=== PATIENT | female | born 1950 | race Caucasian/White ===

== ENCOUNTER 2018-05-04 20:49 | Inpatient (IN) | payer MEDICARE, OTHER, SELFPAY ==
[2018-05-04 20:50] VITALS: BP 111/61; PULSE 132; RESP 14; TEMP 38.1; O2SAT 98; BMI 21.0
[2018-05-04 21:18] VITALS: PULSE 121; RESP 19; O2SAT 98
[2018-05-04 22:18] LABS: Absolute Lymphocyte Count 0.44 X10^3/ul (0.83-4.51); Absolute Neutrophil Count 1.8 X10^3/uL (2.0-7.7); Basophil# 0.01 X10^3/uL; Basophil% 0.4 % (0-1); Eosinophil# 0.02 X10^3/uL; Eosinophils% 0.7 % (0-5); Hematocrit 24.8 % (37-47); Hemoglobin 8.5 g/dl (12.0-15.0); Lymphocyte # 0.44 X10^3/ul (4.0); Lymphocyte % 16.1 % (19-41); Mean Corp Hgb Conc 34.3 g/gl (32-36); Mean Corpuscular Hgb 31.5 pg (27.0-32.0); Mean Corpuscular Volume 91.9 fL (81-99); Mean Platelet Vol. 10.7 fl (6.2-12.0); Monocyte# 0.47 X10^3/uL; Monocyte% 17.2 % (0-10); Neutrophil # 1.77 X10^3/uL (2.7-7.7); Neutrophil % 64.9 % (47-70); Platelet Count 168 K/mm3 (150-450); White Blood Count 2.7 K/mm3 (4.4-11.0)
[2018-05-04 22:20] LABS: Differential Indicated SCAN CRITERIA MET; POSITIVE COUNT NO; POSITIVE DIFFERENTIAL YES; POSITIVE MORPHOLOGY YES
[2018-05-04 22:31] LABS: AST(SGOT) 78 U/L (15-37); Alanine Aminotransfer ALT/SGPT 46 U/L (13-56); Alkaline Phosphatase 424 U/L (45-117); Anion Gap 10 (5-15); BUN 26 mg/dL (7-18); BUN/Creat Ratio 22.2 RATIO (10-20); Bilirubin, Direct 0.89 mg/dL (0.00-0.30); Calcium,Total 7.7 mg/dL (8.5-10.1); Chloride 109 mmol/L (98-107); Creatinine, Serum 1.17 mg/dL (0.55-1.02); EST Glomerular Filtration Rate 49 mL/min (>60); Est Glom Filt Rate - Afr Amer 59 mL/min (>60); Globulin 3.5 g/dL (2.2-4.2); Glucose 100 mg/dL (74-106); Lipase 44 U/L (73-393); Potassium 3.3 mmol/L (3.5-5.1); Protein, Total 5.5 g/dL (6.4-8.2); Sodium Level 139 mmol/L (136-145)
[2018-05-04 22:37] VITALS: BP 109/97; PULSE 112; RESP 16; O2SAT 99
[2018-05-04 22:44] LABS: Differential Comment SCANNED
[2018-05-04] MEDS: 0.9% Normal Saline 1,000 ML 150 ML IV (22:44)
[2018-05-04] MEDS: Acetaminophen 325 MG Tablet 650 MG PO (23:09)
[2018-05-04] MEDS: Ondansetron 4 MG/2 ML Vial IV (23:09)
[2018-05-04 23:10] VITALS: BP 112/6; PULSE 109; RESP 18; O2SAT 100
[2018-05-05] VITALS (11 sets, daily range): BP systolic 98–129; BP diastolic 58–80; PULSE 88–101; RESP 16–20; TEMP 36.3–36.7; O2SAT 99–100; BMI 21.3; BMI 21.4
--- NOTE | 2018-05-05 | IMM_PTH ---
PATIENT: RON RIBERA LOC: MS3 U#:[id number] AGE/SX: 68/F ROOM: MS311 RE05/05/[address]: Dr. Chelsy Stanley MD : 1950 BED: 1 DIS: 05/07/2018 SPEC #: [id number] RECD: 05/08/18 14:47 STATUS: ROBERTO REQ #: [id number] RENZO: 05/05/18 00:[address]: Chelsy Stanley DEPT: IMMUNOHISTOCHEMISTRY RECD BY: Eleni Agee ENTERED: 05/08/18 14:49 SP TYPE: IMMUNO OTHR DR: MD Dr. Brian Mcclain MD No Primary Care Phys Tissues: PARACENTESIS FLUID Procedures: Thyroglobulin (add) Sumanth Ret (add) CK20 (add) CK7 (add) MACRO (add) P53 (add) Vimentin (add) Pankeratin (add) TTF1 (initial) PHYSICIAN & INSTITUTION [place] [id number] SPECIMEN INFORMATION: Tissue Source: Paracentesis fluid Clinical Info: Neutropenic fever, UTI Specimen Number: [id number] #1 CPT code: 41147, 91764 x8 METHODOLOGY: Deparaffinized sections of prefer/formalin-fixed tissue or PAP/DQ stained slides are incubated with monoclonal/polyclonal antibodies/oligonucleotide probes. Localization is made via biotin free immunoperoxidase method. Appropriate controls are performed and reacted as expected. Results on target cell population are indicated in the following table: RESULTS: ANTIBODY / CLONE RESULT Block 1 TTF-1 (8G7G3/1) negative Thyro (2H11+6E1) negative CALRET (polyclonal) negative (positive in mesothelial cells) Macro (HAM-56) negative Vimentin (V9) negative (positive in macrophages) CK7 (OV-TL12/30) negative CK20 (KS20.8) negative P53 (DO-7) negative AE1-3 (AE1/AE3/PCK26) negative These tests were developed and their performance characteristics determined by [facility]. They may not have been cleared or approved by the U.S. Food and Drug Administration. The FDA has determined that such clearance or approval is not necessary. INTERPRETATION: Paracentesis fluid: Negative for malignant cells. JAY:kayden 05/11/18
--- NOTE | 2018-05-05 | FLU_PTH ---
PATIENT: RON RIBERA LOC: MS3 U#:[id number] AGE/SX: 68/F ROOM: DE311 RE05/05/[address]: Dr. Chelsy Stanley MD : 1950 BED: 1 DIS: 05/07/2018 SPEC #: [id number] RECD: 05/05/18 15:44 STATUS: ROBERTO FERRELL #: [id number] RENZO: 05/05/18 00:[address]: Chelsy Stanley DEPT: CYTOLOGY RECD BY: Gabo Bello ENTERED: 05/06/18 09:48 SP TYPE: Fluid OTHR DR: MD Dr. Brian Mcclain MD No Primary Care Phys Tissues: PARACENTESIS FLUID Procedures: Pap Stain (control) Special Stain Group II Surgery Specimen Level IV Cell Block Cytospin Fluid HEADER OPERATION: Ultrasound guided, right paracentesis PRE-OP DIAGNOSIS: Neutropenic fever, UTI TISSUE SUBMITTED: Paracentesis fluid for cytology DIAGNOSIS CYTOLOGY Paracentesis fluid for cytology (cytospin and cell block): Negative for malignant cells. JAY:kayden 05/11/18 COMMENT Immunohistochemistry ([id number]) supports the above diagnosis. Case has been reviewed in consultation with Dr. Carter who concurs with the above diagnosis. IDC:AM CYTOLOGY STUDY Slides are reviewed. The specimen consists of macrophages, mesothelial cells and inflammatory cells. A few atypical cels are noted, favor reactive mesothelial cells. CYTOLOGY GROSS Received is 95 ml of cloudy gold fluid labeled with the patient's name and and designated per the requisition as Paracentesis. Submitted for cytology preparation including cell block. /KLARISSA:kandace 05/06/18 TC:5 CPT: 99477, 42220
[2018-05-05 00:01] LABS: Mucous, Urine 0 SEEN /hpf (<or=2+); Red Blood Cells-Urine 0 SEEN /hpf (0-5); Squamous Epithelial Cells - UA 0 SEEN /hpf (5-10)
[2018-05-05 00:06] LABS: Color, Urine Yellow (Yellow); Glucose, Dipstick Normal (Normal); Ketone-Dipstick 5 mg/dl (Negative); Leukocyte Esterase-Dipstick 500 /ul (Negative); Nitrite-Dipstick Negative (Negative); Occult Blood-Urine 150 /ul (Negative); Protein-Dipstick 100 mg/dl (Negative); Urine Clarity Cloudy (Clear); Urine Urobilinogen 1 mg/dl (Normal)
[2018-05-05 00:07] LABS: Urine Bilirubin Dipstick 1 mg/dL (Negative)
[2018-05-05 00:15] LABS: White Blood Cells >100 SEEN /hpf (0-5)
[2018-05-05 00:16] LABS: Bacteria 3+ /hpf (None Seen)
[2018-05-05] MEDS: Ceftriaxone 1 GM/50 ML BAG IV (00:56)
--- NOTE | 2018-05-05 01:21 | ED.VISSUMM ---
- ER Visit Summary Date of Service: 05/05/18 Chief Complaint: Fever History of Present Illness: The patient is a 68 F who is currently on chemotherapy for breast cancer with metastases to the liver, bone, and lung. Most recent chemotherapy was April 29. Patient developed abdominal pain the following day, 5 days ago. She complains of pain to the left mid abdomen. She has had fever for the past 4 days. She has not notified her oncologist that she has been running a fever. She does report cough with very mild phlegm production. No vomiting or diarrhea. She does admit to poor appetite. Physical Examination: Vital signs in triage include a blood pressure 111/61, temperature 100.5 TA, heart rate 132, respiratory rate 14, pulse ox 98% on room air. The time of my exam her oral temperature is 98.7. Patient sitting upright in bed in no acute distress. She is a cachectic appearing. Head neck examination grossly unremarkable. Heart is tachycardic and regular. Lung sounds are clear. Abdomen is soft with mild left-sided abdominal tenderness. There is no guarding or rebound. Hypoactive bowel sounds are noted. Abdomen is slightly distended throughout. Lower extremity examination reveals 3+ edema to the lower extremities. Test Results: Portable chest x-ray shows no acute process. CBC was a white count of 2.7 and hemoglobin of 8.5. Her ANC is 1.8. Chemistry studies reveal potassium 3.3. BUN is 26 and creatinine is 1.17. LFTs are significant for total bili of 1.2, direct bili 0.89, alk phos of 424. AST is 78. Lipase is normal. Urinalysis obtained from a straight cath does reveal greater than 100 white cells and 3+ bacteria. Blood and urine cultures were obtained. CT the abdomen pelvis shows multiple metastatic lesions in the liver. There is a moderate amount of free air in the abdomen and pelvis. There are multiple metastatic lesions in the lower thoracic spine, lumbar spine, sacrum, and pelvis. There are pathologic fractures noted to the upper endplate of T10, L1, and L3. Emergency Department Course and Treatment: Patient received Tylenol and Zofran on arrival. She has been getting IV fluids. Rocephin has been ordered. On repeat evaluation blood pressure is 127/80, heart rate 91, respiratory rate 16, pulse ox 100%. Treatment Plan: [] Disposition: Admit Impression: 1. Neutropenic fever 2. UTI This note was generated with [employer] dictation software. It may contain incorrect words, spelling, and punctuation that were not noted in review of the chart prior to signing ED Disposition - Plan for ED Patient: Chief Complaint: General Illness Referrals: Care Physician,No Primary [Primary Care Provider] -
--- NOTE | 2018-05-05 01:36 | PCM.HP.STD ---
Problem List (1) Breast cancer metastasized to bone Status: Chronic (2) Acute cystitis Status: Acute (3) Fever Status: Acute (4) GERD (gastroesophageal reflux disease) Status: Chronic (5) Hypertension Status: Chronic Qualifiers: (6) History of breast cancer Status: Chronic (7) Thyroid nodule Status: Chronic (8) Neutropenia Status: Acute Qualifiers: Neutropenia type: secondary to cancer chemotherapy Qualified Code(s): D70.1 - Agranulocytosis secondary to cancer chemotherapy; T45.1X5A - Adverse effect of antineoplastic and immunosuppressive drugs, initial encounter History of Present Illness Date of Admission: 05/05/18 Chief Complaint: febrile illness after chemotherapy The patient is a 68 year old female patient with a significant past medical history of breast cancer with metastasis to liver, bone and lung presents to the ER with fever. Her last chemotherapy was on April [address] Barakat. She complains of abdominal discomfort that began 4-5 days ago. She has had a fever as well but has not reported this to her oncologist. She has a poor appetite and has nausea but no vomiting. Labs reveal a leukopenia and and she has a fever. Urine is positive for bacteria as well. She will be admitted for neutropenic fever and UTI. Past Medical History Past Medical History (Chronic Problems): Chronic Problems Breast cancer metastasized to bone (Chronic) GERD (gastroesophageal reflux disease) (Chronic) Hypertension (Chronic) History of breast cancer (Chronic) Thyroid nodule (Chronic) Allergies iodine Allergy (Verified 05/04/18 20:52) Swelling PT AVOIDS IODINE DUE TO SHELLFISH ALLERGY poison cher extract [Poison Cher Extract] Allergy (Verified 05/04/18 20:52) Hives shellfish derived Allergy (Verified 05/04/18 20:52) Hives zolpidem [From Ambien] Adverse Reaction (Verified 05/04/18 20:52) Other Home Medications: Ambulatory Orders Medication Instructions Recorded Levothyroxine [Synthroid] 112.5 mcg PO DAILY 07/04/14 Triamterene 75MG/Hctz 50MG 1 tablet PO DAILY 06/30/17 [Maxzide] Potassium Chloride 10 meq PO BID 07/19/17 DiphenhydrAMINE [Benadryl] 25 mg PO Q6H PRN PRN capsule 07/21/17 Lisinopril DAILY 05/04/18 Prilosec DAILY 05/04/18 Surgical History: mastectomy Psychiatric History: No pertinent psych hx 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 Denies: Weight Change HEENT: Denies: Head Aches, Sinus Congestion, Sinus Drainage Cardiovascular: Denies: Chest Pain, Palpitations Respiratory: Denies: Cough, Shortness of breath at rest, Sputum production Gastrointestinal: Reports: Abdominal Pain, Nausea. Denies: Vomiting Genitourinary: Denies: Dysuria Musculoskeletal: Denies: Joint Pain, Joint Tenderness Skin: Denies: Rash, Wounds Neurological: Denies: Numbness, Tingling, Focal weakness Psychiatric: Denies: Anxiety, Depression, Homicidal Ideations, Suicidal Ideations Hematologic/ Lymphatic: Denies: Easy Bruising, Easy Bleeding VTE Information - Inpt Only VTE Present on Admission: No VTE Mechan Device Prophylaxis: SCD's VTE Pharm Prophylaxis ordered?: No Patient Problems: Active and Suspected Problems Neutropenia (Acute) - Physical Exam General: Alert, Oriented x3, Cooperative HEENT: Atraumatic, Normocephalic Neck: Supple Lungs: Clear to auscultation, Normal air movement, No rhonchi, No wheeze, No rales Cardiovascular: Regular rate, Regular Rhythm, Normal S1, Normal S2, No murmurs Abdomen: Soft, Non Tender, Hypoactive Bowel Sounds, Distended, Tender - generalized Extremities: No edema, Capillary Refill Less than 3 Seconds Skin: No rashes, No breakdown, - - left subclavian port present Musculoskeletal: No Tenderness to Palpation of Joints or Extremities Neurological: Neuro grossly intact Psych/Mental Status: Normal Affect, Appropriate Vital Signs Temp Pulse Resp BP Pulse Ox 100.5 F H 92 16 127/80 H 100 05/04/18 20:50 05/05/18 00:48 05/05/18 00:48 05/05/18 00:48 05/05/18 00:48 Oxygen Delivery Method Room Air Weight: 115 lb Body Mass Index (BMI) 21.0 Laboratory Tests Past 24 Hrs 05/04/18 05/04/18 05/04/18 21:55 21:55 23:58 WBC 2.7 L RBC 2.70 L Hgb 8.5 L Hct 24.8 L MCV 91.9 MCH 31.5 MCHC 34.3 RDW 17.0 H RDW Differential 55.0 H Plt Count 168 MPV 10.7 Immature Gran % (Auto) 0.700 Neut % (Auto) 64.9 Lymph % (Auto) 16.1 L [place] % (Auto) 17.2 H Eos % (Auto) 0.7 Baso % (Auto) 0.4 Absolute Neuts (auto) 1.8 L Absolute Lymphs (auto) 0.44 L Total Counted Not Reportable Differential Comment SCANNED Sodium 139 Potassium 3.3 L Chloride 109 H Carbon Dioxide 20.0 L Anion Gap 10 BUN 26 H Creatinine 1.17 H Estim Creat Clear Calc 36.90 Est GFR (MDRD) Af Amer 59 L Est GFR (MDRD) Non-Af 49 L BUN/Creatinine Ratio 22.2 H Glucose 100 Calcium 7.7 L Total Bilirubin 1.20 H Direct Bilirubin 0.89 H AST 78 H ALT 46 Alkaline Phosphatase 424 H Total Protein 5.5 L Albumin 2.0 L Globulin 3.5 Lipase 44 L Urine Color Yellow Urine Clarity Cloudy Urine pH 5.0 Ur Specific [place] 1.010 Urine Protein 100 H Urine Glucose (UA) Normal Urine Ketones 5 H Urine Occult Blood 150 H Urine Nitrite Negative Urine Bilirubin 1 H Urine Urobilinogen 1 H Ur Leukocyte Esterase 500 H Urine RBC 0 SEEN Urine WBC >100 SEEN Ur Squamous Epith Cells 0 SEEN Urine Bacteria 3+ Urine Mucus 0 SEEN Assessment/Plan All Active Problems Neutropenia (Acute) Acute cystitis (Acute) Fever (Acute) Drug rash (Acute) Assessment 1. neutropenic fever 2. UTI Plan - admit to general medical floor - neutropenic precautions - continue IV Rocephin and add ciprofloxacin - cbc,bmp in am - consult Dr. Barakat - scds for DVT prophylaxis - continue routine home medications - IV d51/2NS with 20meq KCl at 100cc/hour Code Visit Inpatient E&M: 38812 Init Hosp L3
[2018-05-05] MEDS: Ciprofloxacin 400 MG/200 ML BAG 200 MG IV ×3 (03:01→22:19)
[2018-05-05] MEDS: Levothyroxine 112 MCG Tablet PO (05:34)
[2018-05-05 06:14] LABS: Hematocrit 26.4 % (37-47); Mean Corp Hgb Conc 34.1 g/gl (32-36); Mean Corpuscular Hgb 31.7 pg (27.0-32.0); Mean Platelet Vol. 10.2 fl (6.2-12.0); Platelet Count 145 K/mm3 (150-450); RBC Distribution Width CV 17.5 % (11.6-14.6); RBC Distribution Width SD 57.3 fl (35.1-43.9); Red Blood Count 2.84 M/mm3 (4.2-5.4); White Blood Count 2.4 K/mm3 (4.4-11.0)
[2018-05-05 06:19] LABS: Scan Indicated on CBC? Y/N NO
[2018-05-05 06:24] LABS: Anion Gap 13 (5-15); BUN 26 mg/dL (7-18); BUN/Creat Ratio 19.8 RATIO (10-20); Calcium,Total 7.2 mg/dL (8.5-10.1); Chloride 107 mmol/L (98-107); Creatinine, Serum 1.31 mg/dL (0.55-1.02); EST Glomerular Filtration Rate 43 mL/min (>60); Est Glom Filt Rate - Afr Amer 52 mL/min (>60); Estimated Creatinine Clearance 32.96 ml/min; Glucose 123 mg/dL (74-106); Potassium 3.2 mmol/L (3.5-5.1); Sodium Level 140 mmol/L (136-145)
--- NOTE | 2018-05-05 08:06 | PCM.CONS.B ---
Problem List (1) Neutropenia Status: Acute Qualifiers: Neutropenia type: secondary to cancer chemotherapy Qualified Code(s): D70.1 - Agranulocytosis secondary to cancer chemotherapy; T45.1X5A - Adverse effect of antineoplastic and immunosuppressive drugs, initial encounter (2) Acute cystitis Status: Acute Qualifiers: Hematuria presence: without hematuria Qualified Code(s): N30.00 - Acute cystitis without hematuria (3) History of breast cancer Status: Chronic (4) Ascites, malignant Status: Suspected - Consult Date of Consult: 05/05/[address] Perlita lopezing a patient with metastatic breast cancer on chemotherapy presented with fever, abdomenal pain and neutropenia. My final recommendation will be communicated to Dr. Rubio and by E.M.R. - Reason for Consult History of Present Illness Date of Admission: 05/05/18 Chief Complaint: febrile illness after chemotherapy The patient is a 68 year old female patient with a significant past medical history of breast cancer with metastasis to liver, bone and lung presents to the ER with fever. Her last chemotherapy- Capmtosar was on April 29. She complains of abdominal discomfort and distension that began 4-5 days ago. She has had a fever last night and mild dysuria She has a poor appetite and has nausea for several days but no vomiting. Labs reveal a leukopenia and abnormal LFTs. Urine is positive for bacteria as well. She was admitted for neutropenic fever and UTI. CT scan of abdomen showed worsten liver metastasis with new ascites. Oncology history: Stage IIb pT2, pN1a right breast IDC ca, s/p MRM and reconstruction, XRT and adj chemo AC x4, Taxol x 4 in 1999. Tamoxifen x 5 years, Femara [id number] Recurrence on 07/19/2012; Bx of sternum ER+/NC+/ Her2- with liver, lungs & bone mets Taxol2012- 2013 Aromasin 2014 Thyrodectomy for Thyroid CA 07/08/2014 Faslodex 2015 Erulin 2015- 02/2017 Letrozol & Palbocicib 03/2017- 09/2017 Camptosar 10/2017- now Past Medical History Past Medical History (Chronic Problems): Chronic Problems Breast cancer metastasized to bone (Chronic) GERD (gastroesophageal reflux disease) (Chronic) Hypertension (Chronic) History of breast cancer (Chronic) Thyroid cancer (Chronic) Allergies iodine Allergy (Verified 05/04/18 20:52) Swelling PT AVOIDS IODINE DUE TO SHELLFISH ALLERGY poison cher extract [Poison Cher Extract] Allergy (Verified 05/04/18 20:52) Hives shellfish derived Allergy (Verified 05/04/18 20:52) Hives zolpidem [From Ambien] Adverse Reaction (Verified 05/04/18 20:52) Other Home Medications: Ambulatory Orders Medication Instructions Recorded Levothyroxine [Synthroid] 112.5 mcg PO DAILY 07/04/14 Triamterene 75MG/Hctz 50MG 1 tablet PO DAILY 06/30/17 [Maxzide] Potassium Chloride 10 meq PO BID 07/19/17 DiphenhydrAMINE [Benadryl] 25 mg PO Q6H PRN PRN capsule 07/21/17 Lisinopril DAILY 05/04/18 Prilosec DAILY 05/04/18 Surgical History: mastectomy Psychiatric History: No pertinent psych hx 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 Denies: Weight Change HEENT: Denies: Head Aches, Sinus Congestion, Sinus Drainage Cardiovascular: Denies: Chest Pain, Palpitations Respiratory: Denies: Cough, Shortness of breath at rest, Sputum production Gastrointestinal: Reports: Abdominal Pain, Nausea. Denies: Vomiting Genitourinary: Denies: Dysuria Musculoskeletal: Denies: Joint Pain, Joint Tenderness Skin: Denies: Rash, Wounds Neurological: Denies: Numbness, Tingling, Focal weakness Psychiatric: Denies: Anxiety, Depression, Homicidal Ideations, Suicidal Ideations Hematologic/ Lymphatic: Denies: Easy Bruising, Easy Bleeding - Physical Exam General: Alert, Oriented x3, Cooperative HEENT: Atraumatic, Normocephalic anicteric Neck: Supple Lungs: Clear to auscultation, Normal air movement, No rhonchi, No wheeze, No rales Cardiovascular: Regular rate, Regular Rhythm, Normal S1, Normal S2, No murmurs Abdomen: Soft, Non Tender, Hypoactive Bowel Sounds, Distended, Tender - generalized + ascites Extremities: No edema, Capillary Refill Less than 3 Seconds Skin: No rashes, No breakdown, - - left subclavian port present Musculoskeletal: No Tenderness to Palpation of Joints or Extremities Neurological: Neuro grossly intact Psych/Mental Status: Normal Affect, Appropriate Vital Signs Temp Pulse Resp BP Pulse Ox 100.5 F H 92 16 127/80 H 100 05/04/18 20:50 05/05/18 00:48 05/05/18 00:48 05/05/18 00:48 05/05/18 00:48 Oxygen Delivery Method Room Air Weight: 115 lb Body Mass Index (BMI) 21.0 Laboratory Results - last 24 hr 05/04/18 05/04/18 05/04/18 21:55 21:55 23:58 WBC 2.7 L RBC 2.70 L Hgb 8.5 L Hct 24.8 L MCV 91.9 MCH 31.5 MCHC 34.3 RDW 17.0 H RDW Differential 55.0 H Plt Count 168 MPV 10.7 Immature Gran % (Auto) 0.700 Neut % (Auto) 64.9 Lymph % (Auto) 16.1 L [place] % (Auto) 17.2 H Eos % (Auto) 0.7 Baso % (Auto) 0.4 Absolute Neuts (auto) 1.8 L Absolute Lymphs (auto) 0.44 L Total Counted Not Reportable Differential Comment SCANNED Sodium 139 Potassium 3.3 L Chloride 109 H Carbon Dioxide 20.0 L Anion Gap 10 BUN 26 H Creatinine 1.17 H Estim Creat Clear Calc 36.90 Est GFR (MDRD) Af Amer 59 L Est GFR (MDRD) Non-Af 49 L BUN/Creatinine Ratio 22.2 H Glucose 100 Calcium 7.7 L Total Bilirubin 1.20 H Direct Bilirubin 0.89 H AST 78 H ALT 46 Alkaline Phosphatase 424 H Total Protein 5.5 L Albumin 2.0 L Globulin 3.5 Lipase 44 L Urine Color Yellow Urine Clarity Cloudy Urine pH 5.0 Ur Specific [place] 1.010 Urine Protein 100 H Urine Glucose (UA) Normal Urine Ketones 5 H Urine Occult Blood 150 H Urine Nitrite Negative Urine Bilirubin 1 H Urine Urobilinogen 1 H Ur Leukocyte Esterase 500 H Urine RBC 0 SEEN Urine WBC >100 SEEN Ur Squamous Epith Cells 0 SEEN Urine Bacteria 3+ Urine Mucus 0 SEEN 05/05/18 05/05/18 05:30 05:30 WBC 2.4 L RBC 2.84 L Hgb 9.0 L Hct 26.4 L MCV 93.0 MCH 31.7 MCHC 34.1 RDW 17.5 H RDW Differential 57.3 H Plt Count 145 L MPV 10.2 Immature Gran % (Auto) Neut % (Auto) Lymph % (Auto) [place] % (Auto) Eos % (Auto) Baso % (Auto) Absolute Neuts (auto) Absolute Lymphs (auto) Total Counted Differential Comment Sodium 140 Potassium 3.2 L Chloride 107 Carbon Dioxide 20.0 L Anion Gap 13 BUN 26 H Creatinine 1.31 H Estim Creat Clear Calc 32.96 Est GFR (MDRD) Af Amer 52 L Est GFR (MDRD) Non-Af 43 L BUN/Creatinine Ratio 19.8 Glucose 123 H Calcium 7.2 L Total Bilirubin Direct Bilirubin AST ALT Alkaline Phosphatase Total Protein Albumin Globulin Lipase Urine Color Urine Clarity Urine pH Ur Specific [place] Urine Protein Urine Glucose (UA) Urine Ketones Urine Occult Blood Urine Nitrite Urine Bilirubin Urine Urobilinogen Ur Leukocyte Esterase Urine RBC Urine WBC Ur Squamous Epith Cells Urine Bacteria Urine Mucus CXR NAD Assessment/Plan All Active Problems Neutropenia (Acute) Acute cystitis (Acute) Fever (Acute) Ascites 2/2 liver disease - progression of metastatic breast cancer (Acute) Metastatic Breast Cancer ER+/Her2 non-overexpressed on Palliaitve chemotherapy. PLAN: -Continue antibiotics and awaiting urine culture results -Check Protime & u/s guide paracentesis for culture & cytology -Hold chemotherapy treatment and discuss other treatment options next week or Hospice/palliative care. -Prognosis not good since patient had multiple chemotherapy and endocrine therapies in the past. cc: Dr. Brian Bhat, Dr. Betzaida Barakat
[2018-05-05 09:09] LABS: International Normalized Ratio 1.2; Prothrombin Time (Protime)PT. 15.6 SECONDS (11.7-14.9)
[2018-05-05 09:10] LABS: Partial Thromboplast Time 32.9 Seconds (24.1-36.2)
[2018-05-05] MEDS: Pantoprazole Sodium 20 MG Tablet PO (09:24)
--- NOTE | 2018-05-05 10:05 | PCM.PN.BLA ---
Progress Note This patient admitted for fever, found to have acute cystitis in context of history of metastatic breast cancer and her blood culture revealed gram-negative rods. Patient seen and examined today. She mentioned that she is feeling better. Still complaining of dysuria. Denies any more abdominal pain. Her vital signs are stable, has been afebrile overnight. Her CBC revealed leukopenia and anemia but her absolute neutrophil count is 1800. No evidence of neutropenia. Her potassium is 3.2, creatinine 1.31 which is going up. Her LFTs are elevated likely because of metastasis. CT scan abdomen and pelvis without contrast revealed metastatic liver lesions, moderate ascites, multiple metastatic lesions in the lower thoracic spine, lumbar spine, sacrum and pelvic bones as well as pathological fractures of the T10, L1, L3. Assessment and plan: #1 acute cystitis: On IV ciprofloxacin. #2 gram-negative bacteremia: Probable source is UTI, on IV ciprofloxacin as above. #3 new abdominal ascites: Likely because of liver metastasis. Dr. Barakat recommended paracentesis, ascitic fluid cytology and culture. Ultrasound guided paracentesis ordered as well as bloody fluid analysis. This note was generated with [employer] software. It may contain incorrect words, spelling, and punctuation that were not noted in checking the note before signing.
--- NOTE | 2018-05-05 10:11 | PN_ITS ---
Progress Note This patient admitted for fever, found to have acute cystitis in context of history of metastatic breast cancer and her blood culture revealed gram- negative rods. Patient seen and examined today. She mentioned that she is feeling better. Still complaining of dysuria. Denies any more abdominal pain. Her vital signs are stable, has been afebrile overnight. Her CBC revealed leukopenia and anemia but her absolute neutrophil count is 1800. No evidence of neutropenia. Her potassium is 3.2, creatinine 1.31 which is going up. Her LFTs are elevated likely because of metastasis. CT scan abdomen and pelvis without contrast revealed metastatic liver lesions, moderate ascites, multiple metastatic lesions in the lower thoracic spine, lumbar spine, sacrum and pelvic bones as well as pathological fractures of the T10, L1, L3. Assessment and plan: #1 acute cystitis: On IV ciprofloxacin. #2 gram-negative bacteremia: Probable source is UTI, on IV ciprofloxacin as above. #3 new abdominal ascites: Likely because of liver metastasis. Dr. Barakat recommended paracentesis, ascitic fluid cytology and culture. Ultrasound guided paracentesis ordered as well as bloody fluid analysis. This note was generated with [email or web address] software. It may contain incorrect words, spelling, and punctuation that were not noted in checking the note before signing.
--- NOTE | 2018-05-05 10:52 | NURSING ---
HOME MEDICATIONS REVIEWED WITH [facility]
--- NOTE | 2018-05-05 11:43 | CASEMGMT ---
See RN CM Assessment Link. Pt denies discharge needs, states family can assist. No DME, however was independent prior to admission. Pt states if she needs assist, she will stay with her daughter on dc for a short time. Norma GERBER RN ACM
--- NOTE | 2018-05-05 15:52 | NURSING ---
PT RETURN FROM RADIOLOGY VIA BED
[2018-05-05 16:27] LABS: Cytology, Body Fluid / CSF SEE PATHOLOGY REPORT
[2018-05-05 18:25] LABS: Auto B Fluid Analyzer BKGD Ct COUNTS W/IN LIMITS (W/IN LIMITS)
[2018-05-05 18:26] LABS: Source- Body Fluid ASCITES FLUID
[2018-05-05 18:27] LABS: Appearance/Body Fluid CLEAR; Color/Body Fluid YELLOW
[2018-05-05 18:28] LABS: Body Fluid Polynuclear WBC # 0.027 10^3/uL; Body Fluid Total Cells Counted 0.098 10^3/ul (0.000-0.000); White Blood Count/Body Fluid 0.087 10^3/uL
[2018-05-05 18:43] LABS: Red Cell Count/Body Fluid 446 /mm3
[2018-05-05 19:09] LABS: LDH,Body Fluid 203 Units/l (Not Establ.); Protein, Body Fluid 1.3 g/dL (Not Establ.)
[2018-05-05 19:32] LABS: Lymphocytes 46 %; Mesothelial Cells 11 %; Monocytes 13 %; Neutrophil (Segs) 30 %
[2018-05-05 19:33] LABS: Body Fluid QC Type(s) BF2Q
[2018-05-06 01:54] VITALS: BP 115/60; PULSE 101; RESP 18; TEMP 36.7; O2SAT 98
[2018-05-06] MEDS: Ondansetron 4 MG/2 ML Vial IV (01:57)
[2018-05-06] MEDS: 0.9% NaCl VAD Flush 10 ML IV ×5 (01:57→06:23)
[2018-05-06] MEDS: Levothyroxine 112 MCG Tablet PO (05:54)
[2018-05-06 06:29] LABS: Absolute Lymphocyte Count 0.77 X10^3/ul (0.83-4.51); Absolute Neutrophil Count 2.7 X10^3/uL (2.0-7.7); Basophil# 0.01 X10^3/uL; Basophil% 0.2 % (0-1); Eosinophil# 0.07 X10^3/uL; Eosinophils% 1.7 % (0-5); Hematocrit 24.8 % (37-47); Hemoglobin 8.6 g/dl (12.0-15.0); Lymphocyte # 0.77 X10^3/ul (4.0); Lymphocyte % 18.4 % (19-41); Mean Corp Hgb Conc 34.7 g/gl (32-36); Mean Corpuscular Hgb 31.6 pg (27.0-32.0); Mean Corpuscular Volume 91.2 fL (81-99); Monocyte# 0.62 X10^3/uL; Monocyte% 14.8 % (0-10); Neutrophil # 2.67 X10^3/uL (2.7-7.7); Neutrophil % 63.7 % (47-70); Platelet Count 164 K/mm3 (150-450); RBC Distribution Width CV 17.4 % (11.6-14.6); RBC Distribution Width SD 54.9 fl (35.1-43.9); Red Blood Count 2.72 M/mm3 (4.2-5.4); White Blood Count 4.2 K/mm3 (4.4-11.0)
[2018-05-06 06:31] LABS: POSITIVE COUNT NO; POSITIVE DIFFERENTIAL NO; POSITIVE MORPHOLOGY NO
[2018-05-06 06:50] LABS: Anion Gap 10 (5-15); BUN 18 mg/dL (7-18); Calcium,Total 7.2 mg/dL (8.5-10.1); Chloride 107 mmol/L (98-107); EST Glomerular Filtration Rate 59 mL/min (>60); Est Glom Filt Rate - Afr Amer 71 mL/min (>60); Estimated Creatinine Clearance 43.18 ml/min; Glucose 93 mg/dL (74-106); Potassium 3.8 mmol/L (3.5-5.1); Sodium Level 136 mmol/L (136-145)
--- NOTE | 2018-05-06 07:03 | PCM.PN.HOSP ---
Patient Problems: Active and Suspected Problems Neutropenia (Acute) Ascites, malignant (Suspected) Subjective: Patient with no acute events overnight per self and per nursing report. She states she has been breathing better and feels improved since initial presentation. Reviewed need to continue inpatient status until sensitivities and specificities resulted to assure on correct antibiotic therapy to which patient is understanding. Noted possibility of future Pleurx catheter if refractory with malignant ascites with current cultures pending. Palliative treatment options were discussed with patient per Dr. Barakat with plan follow-up within 1 week. Patient denies fevers, chills, nausea, emesis, abdominal pain, chest pain or dyspnea. Objective: Physical Examination: General: awake, alert, oriented x 3 and cooperative, seated upright in the bedside chair, in no apparent distress. Skin: normal color, turgor, no icterus, cyanosis. HEENT: AT/NC, EOMI, PERRLA, MMM. Lungs: Improved, diminished bases, moderate effort, no rales, ronchi or wheezing. Heart: Regular rate and rhythm; no gallop, rub audible. Abdomen: soft, mild TTP, mild distention, improved s/p paracentesis, normal BS. Extremities: no cyanosis, clubbing, or edema. Neurological: patient awake, alert, oriented x 3; cognitive function intact; pupils equally reactive to light and accomodation; cranial nerves II-XII grossly normal, moving all 4 extremities, no focal deficits, strength moderately globally decreased. Psychiatric: affect appears normal, no acute evidence of depressive or anxiety feelings. Vitals/I&O's: Vital Signs Temp Pulse Resp BP Pulse Ox 98.1 F 101 H 18 115/60 98 05/06/18 01:54 05/06/18 01:54 05/06/18 01:54 05/06/18 01:54 05/06/18 01:54 Oxygen Delivery Method Room Air Weight: 116 lb 13.52 oz Body Mass Index (BMI) 21.3 Intake and Output for Last 24 Hours 05/04/18 05/05/18 05/06/18 23:59 23:59 23:59 Intake Total 2445 / 2445 1467 / 1467 Output Total 500 / 500 200 / 200 Balance 1945 / 1945 1267 / 1267 Microbiology Past 72 Hours 05/05/18 14:55 Stool C. difficile DNA Amplification - Final Laboratory Results 05/05/18 08:15: PT 15.6 H, INR 1.2, APTT 32.9 05/05/18 15:30: Fluid Glucose 115 H, Fluid Total Protein 1.3, Fluid LDH 203 05/05/18 15:30: Miscellaneous Cytology Pending 05/05/18 15:30: Fluid Source ASCITES FLUID, Fluid Color YELLOW, Fluid Appearance CLEAR, Fluid WBC 0.087, Fluid RBC 446, Fluid Tot Cell Count 0.098 H, Fld Polynuclear WBCs # 0.027, Fld Polynuclear WBCs % 31.0, Fluid Mononuclear WBCs 0.060, Fld Mononuclear WBCs % 69.0, Fluid Neutrophils 30, Fluid Lymphocytes 46, Fluid Monocytes 13, Fld Mesothelial Cells 11, Fl Pathologist Comment May follow, Fluid Comment 2 SEE COMMENT 05/06/18 06:15: WBC 4.2 L, RBC 2.72 L, Hgb 8.6 L, Hct 24.8 L, MCV 91.2, MCH 31.6, MCHC 34.7, RDW 17.4 H, RDW Differential 54.9 H, Plt Count 164, MPV 11.0, Immature Gran % (Auto) 1.200 H, Neut % (Auto) 63.7, Lymph % (Auto) 18.4 L, Bureau % (Auto) 14.8 H, Eos % (Auto) 1.7, Baso % (Auto) 0.2, Absolute Neuts (auto) 2.7, Absolute Lymphs (auto) 0.77 L, Total Counted Not Reportable 05/06/18 06:15: Sodium 136, Potassium 3.8, Chloride 107, Carbon Dioxide 19.0 L, Anion Gap 10, BUN 18, Creatinine 1.00, Estim Creat Clear Calc 43.18, Est GFR (MDRD) Af Amer 71, Est GFR (MDRD) Non-Af 59 L, BUN/Creatinine Ratio 18.0, Glucose 93, Calcium 7.2 L Current Medications Diphenhydramine HCl (Benadryl) 25 mg PO Q6H PRN PRN PRN Reason: ITCHING Heparin Sodium (Beef Lung) (Heparin 500 Unit/5 Ml (100/Ml)) 500 unit IV UD PRN PRN Reason: HEPARIN FLUSH Ciprofloxacin (Cipro) 400 mg in 200 mls @ 200 mls/hr IV Q12 [facility] Last Admin: 05/05/18 22:19 Dose: 200 mls/hr Potassium Chloride/Dextrose/Sod Cl (Kcl 20meq In D5.45ns 1000ml) 1,000 mls @ 100 mls/hr IV .Q10H [facility] Last Admin: 05/06/18 03:18 Dose: 100 mls/hr Levothyroxine Sodium (Synthroid) 112 mcg PO DAILY@0600 [facility] Last Admin: 05/06/18 05:54 Dose: 112 mcg Magnesium Hydroxide (Milk Of Magnesia) 30 ml PO DAILY PRN PRN PRN Reason: Constipation Morphine Sulfate () 1 - 2 mg IV Q4H PRN PRN PRN Reason: Moderate Pain (pain scale 4-5) Ondansetron HCl (Zofran) 4 mg IV Q8H PRN PRN PRN Reason: Nausea Last Admin: 05/06/18 01:57 Dose: 4 mg Oxycodone HCl (Oxyir) 5 mg PO Q4H PRN PRN PRN Reason: Moderate Pain (pain scale 4-5) Pantoprazole Sodium (Protonix) 20 mg PO DAILY [facility] Last Admin: 05/05/18 09:24 Dose: 20 mg Sodium Chloride () 10 ml IV UD PRN PRN Reason: VAD FLUSH Last Admin: 05/06/18 06:23 Dose: 10 ml Medical Necessity - Tobacco Use Smoking Status: Never smoker Assessment/Plan All Active Problems Neutropenia (Acute) Acute cystitis (Acute) Fever (Acute) Drug rash (Acute) The patient is a 68 y/o F w/ PMHx: HTN, GERD, Hx Thyroid Nodule w/ Hypothyroidism, GERD, Metastatic Breast CA to Bone following w/ Dr. Barakat on current chemotherapy who presents to the [facility] ED on 05/05/18 with fever following chemotherapy. (1) Neutropenic fever secondary to Acute GNR UTI w/ Gram Negative Bacteremia: Admission CBC w/ WBC 2.7 w/ ANC 1.8, CXR w/ no acute findings, UA notable w/ pending UCx, CT A/P w/ multiple metastatic lesions in the liver with largest measuring 4 cm with moderate amount of free fluid in the abdomen and pelvis, multiple metastatic lesions in the lower thoracic spine, lumbar spine, sacrum and pelvic bones with pathological fractures in the upper endplate of T10, L1, L3. Bld cx and UCx pending. Oncology aware, consult pending. Maintained upon admission Neutropenic precautions, obtain mag and phos level given recent chemotherapy treatments, maintain I&Os, treat with IV cipro pending cultures. PRN tylenol, anti-emetics, pain regimen. (2) Elevated LFTs, Bilirubin w/ New Abdominal Ascites: Admission T Bili 1.20, D Bili 0.89, AST/ALT 78/46, CT A/P w/ multiple metastatic lesions in the liver with largest measuring 4 cm with moderate amount of free fluid in the abdomen and pelvis, multiple metastatic lesions in the lower thoracic spine, lumbar spine, sacrum and pelvic bones with pathological fractures in the upper endplate of T10, L1, L3. Likely secondary to liver metastatic disease, s/p paracentesis with ascitic fluid cytology and culture pending. Continue on spironolactone plus or minus Lasix pending continued status with possibility of future Pleurx catheter need if patient becomes refractory with malignant ascites to be directed per her heme oncologist. (3) Metastatic breast cancer: Noted metastatic disease to lung, liver, bone with pending workup as noted #2, positive treatment options discussed with patient including outpatient and possible hospice palliative referral per Dr. Barakat, depending on #2 and ongoing presentation may require a Pleurx catheter if refractory with malignant ascites. (4) Acute kidney injury: Secondary to acute presentation #1, dehydration, improving. 05/05/18 BUN/Cr 26/1.31, prior baseline creatinine noted to be 0.8. Will hydrate, hold nephrotoxic medications, trend BMP. (5) Hypertension: Continue home regimen including lisinopril, triamterene, hydrochlorothiazide, PRN hydralazine. (6) Hypokalemia: Admission K+ 3.3, supplementation given, improved, 05/06/18 K 3.8. (7) Hypothyroidism: Continue home synthroid regimen. (8) GERD: PPI. (9) DVT Prophylaxis: SCDs, heparin. (10) CODE status: Discussed CODE status at length including difference between FULL code, DNR-CCA and DNR-CC status. Following discussions about the differences in these status, requested continued FULL CODE status, despite metastatic cancer history but notes will think about these discussions and consider DNR-CCA, no intubation status status with plans for HCPOA/Living will set-up with Dr. Barakat office, offered assistance here and declined. Advanced Care Planning Face to Face Time: 20 minutes. Code Visit Inpatient E&M: 69336 Subs Hosp L2 Procedures: 28809 Advncd Care Plan 30 Min
[2018-05-06 07:27] LABS: Magnesium 1.7 mg/dL (1.6-2.6)
[2018-05-06 07:33] LABS: Phosphorus 1.7 mg/dL (2.5-4.9)
--- NOTE | 2018-05-06 08:14 | PCM.PROGNOTE ---
Patient Problems: Active and Suspected Problems Neutropenia (Acute) Ascites, malignant (Suspected) Subjective: Slowly improving on antibiotic for treatment of urosepsis. No abdominal pain, nausea vomiting. Afebrile and neutropenia has recovered. Paracentesis yesterday; cytology is pending. Urine and blood culture showed gram-negative rods - Physical Exam General: Alert, Oriented x3, No apparent distress Oral: Moist Mucosa, No Gingival or Mucosal Lesions/ Ulcerations Neck: Supple, No JVD Lungs: Clear to auscultation Cardiovascular: Regular rate, Regular Rhythm, Normal S1, Normal S2, No murmurs Abdomen: Non Tender, Distended - Improved + ascites Extremities: No clubbing, No cyanosis, No edema Skin: No rashes, No breakdown Musculoskeletal: No Tenderness to Palpation of Joints or Extremities Lymphatic: No Cervical, Supraclavicular, or Inguinal Adenopathy Neurological: Neuro grossly intact Psych/Mental Status: Normal Affect Vital Signs Temp Pulse Resp BP Pulse Ox 98.1 F 101 H 18 115/60 98 05/06/18 01:54 05/06/18 01:54 05/06/18 01:54 05/06/18 01:54 05/06/18 01:54 Oxygen Delivery Method Room Air Weight: 116 lb 13.52 oz Body Mass Index (BMI) 21.3 Intake and Output for Last 24 Hours 05/04/18 05/05/18 05/06/18 23:59 23:59 23:59 Intake Total 2445 / 2445 1467 / 1467 Output Total 500 / 500 200 / 200 Balance 1945 / 1945 1267 / 1267 Microbiology Past 72 Hours 05/05/18 14:55 C. difficile DNA Amplification - Final Stool Laboratory Tests Past 24 Hrs 05/05/18 05/05/18 05/05/18 08:15 15:30 15:30 WBC RBC Hgb Hct MCV MCH MCHC RDW RDW Differential Plt Count MPV Immature Gran % (Auto) Neut % (Auto) Lymph % (Auto) Burt % (Auto) Eos % (Auto) Baso % (Auto) Absolute Neuts (auto) Absolute Lymphs (auto) Total Counted PT 15.6 H INR 1.2 APTT 32.9 Sodium Potassium Chloride Carbon Dioxide Anion Gap BUN Creatinine Estim Creat Clear Calc Est GFR (MDRD) Af Amer Est GFR (MDRD) Non-Af BUN/Creatinine Ratio Glucose Calcium Phosphorus Magnesium Fluid Source Fluid Color Fluid Appearance Fluid WBC Fluid RBC Fluid Tot Cell Count Fld Polynuclear WBCs # Fld Polynuclear WBCs % Fluid Mononuclear WBCs Fld Mononuclear WBCs % Fluid Neutrophils Fluid Lymphocytes Fluid Monocytes Fld Mesothelial Cells Fl Pathologist Comment Fluid Glucose 115 H Fluid Total Protein 1.3 Fluid LDH 203 Fluid Comment 2 Miscellaneous Cytology Pending 05/05/18 05/06/18 05/06/18 15:30 06:15 06:15 WBC 4.2 L RBC 2.72 L Hgb 8.6 L Hct 24.8 L MCV 91.2 MCH 31.6 MCHC 34.7 RDW 17.4 H RDW Differential 54.9 H Plt Count 164 MPV 11.0 Immature Gran % (Auto) 1.200 H Neut % (Auto) 63.7 Lymph % (Auto) 18.4 L Burt % (Auto) 14.8 H Eos % (Auto) 1.7 Baso % (Auto) 0.2 Absolute Neuts (auto) 2.7 Absolute Lymphs (auto) 0.77 L Total Counted Not Reportable PT INR APTT Sodium 136 Potassium 3.8 Chloride 107 Carbon Dioxide 19.0 L Anion Gap 10 BUN 18 Creatinine 1.00 Estim Creat Clear Calc 43.18 Est GFR (MDRD) Af Amer 71 Est GFR (MDRD) Non-Af 59 L BUN/Creatinine Ratio 18.0 Glucose 93 Calcium 7.2 L Phosphorus Magnesium Fluid Source ASCITES FLUID Fluid Color YELLOW Fluid Appearance CLEAR Fluid WBC 0.087 Fluid RBC 446 Fluid Tot Cell Count 0.098 H Fld Polynuclear WBCs # 0.027 Fld Polynuclear WBCs % 31.0 Fluid Mononuclear WBCs 0.060 Fld Mononuclear WBCs % 69.0 Fluid Neutrophils 30 Fluid Lymphocytes 46 Fluid Monocytes 13 Fld Mesothelial Cells 11 Fl Pathologist Comment May follow Fluid Glucose Fluid Total Protein Fluid LDH Fluid Comment 2 SEE COMMENT Miscellaneous Cytology 05/06/18 05/06/18 06:15 06:15 WBC RBC Hgb Hct MCV MCH MCHC RDW RDW Differential Plt Count MPV Immature Gran % (Auto) Neut % (Auto) Lymph % (Auto) Burt % (Auto) Eos % (Auto) Baso % (Auto) Absolute Neuts (auto) Absolute Lymphs (auto) Total Counted PT INR APTT Sodium Potassium Chloride Carbon Dioxide Anion Gap BUN Creatinine Estim Creat Clear Calc Est GFR (MDRD) Af Amer Est GFR (MDRD) Non-Af BUN/Creatinine Ratio Glucose Calcium Phosphorus 1.7 L Magnesium 1.7 Fluid Source Fluid Color Fluid Appearance Fluid WBC Fluid RBC Fluid Tot Cell Count Fld Polynuclear WBCs # Fld Polynuclear WBCs % Fluid Mononuclear WBCs Fld Mononuclear WBCs % Fluid Neutrophils Fluid Lymphocytes Fluid Monocytes Fld Mesothelial Cells Fl Pathologist Comment Fluid Glucose Fluid Total Protein Fluid LDH Fluid Comment 2 Miscellaneous Cytology Medical Necessity - Tobacco Use Smoking Status: Never smoker Assessment/Plan All Active Problems Neutropenia (Acute) Acute cystitis (Acute) Fever (Acute) Drug rash (Acute) 1. Neutropenic fever with urosepsis -improving; afebrile & white blood cell counts recovering Plan: discharge home on oral antibiotic once bacteria identified. 2. Liver failure with ascites secondary to progression of metastatic breast cancer-cytology is pending Plan: Continue spironolactone +/-Lasix -Possible Pleurx catheter placement if patient becomes refractory w malignant ascites. 3. Metastatic breast cancer with lung, liver, bone metastasis - Plan: -Discuss palliative treatment option as outpatient & possible hospice / palliative care referral (Her treatment options are limited with increasing comorbidity) -I will see Mrs. Frias next week in my office. cc: Dr. Chelsy Stanley; Dr. Betzaida Barakat
[2018-05-06] MEDS: Ciprofloxacin 400 MG/200 ML BAG 200 MG IV ×2 (09:40→21:29)
[2018-05-06] MEDS: Pantoprazole Sodium 20 MG Tablet PO (09:45)
[2018-05-06] MEDS: Heparin Injection (Vial) 5,000 UNIT/ML VIAL 5000 UNIT SC ×2 (09:45→21:25)
[2018-05-06 09:51] VITALS: BP 101/59; PULSE 104; RESP 16; TEMP 36.9; O2SAT 100
[2018-05-06] MEDS: Na Biphos/Potassium Phosphate PACKET 1 PACKET PO ×3 (12:05→21:25)
[2018-05-06 15:06] LABS: Pathologist Comment/Body Fluid Reviewed
[2018-05-06 16:31] VITALS: BP 126/64; PULSE 97; RESP 18; TEMP 36.6; O2SAT 100
[2018-05-06 20:00] VITALS: BP 119/68; PULSE 104; RESP 16; TEMP 36.3; O2SAT 98
[2018-05-06] MEDS: Ibuprofen 600 MG Tablet PO (20:19)
[2018-05-06] MEDS: Mag Hydrox/Al Hydrox/Simeth 30 ML UDC 15 ML PO (20:19)
[2018-05-06 22:00] VITALS: PULSE 104; RESP 16; O2SAT 98
--- NOTE | 2018-05-07 01:28 | NURSING ---
OPHTHALMIC PHOTOGRAPHER came to this RN and made aware pt was on the toilet and had some bleeding. This RN went to check on pt and did have some blood in her hat in the toilet and when she wiped. Pt states she sometimes does this. Pt stable on toilet and this RN found primary RN to make aware. Primary RN, Elyssa, in room now with pt.
[2018-05-07 02:00] VITALS: BP 120/71; PULSE 95; RESP 16; TEMP 36.6; O2SAT 95
[2018-05-07 04:00] VITALS: PULSE 95
[2018-05-07] MEDS: Menthol/Lanolin/Calamine/Znox 113 GM Tube 1 APPLIC TOPICAL (05:42)
[2018-05-07] MEDS: Levothyroxine 112 MCG Tablet PO (05:42)
--- NOTE | 2018-05-07 07:05 | PCM.PN.HOSP ---
Patient Problems: Active and Suspected Problems Neutropenia (Acute) Ascites, malignant (Suspected) Subjective: No acute events overnight per self and per nursing report. Patient states feeling markedly improved and is eager for discharge to home. She states she feels less weak and less fatigued and is more active. Patient denies fevers, chills, nausea, emesis, abdominal pain, chest pain or dyspnea. Objective: Physical Examination: General: awake, alert, oriented x 3 and cooperative, seated upright in the bed, in no apparent distress. Skin: normal color, turgor, no icterus, cyanosis. HEENT: AT/NC, EOMI, PERRLA, MMM. Lungs: Mildly diminished bases, moderate effort, no rales, ronchi or wheezing. Heart: Regular rate and rhythm; no gallop, rub audible. Abdomen: soft, NTTP, mild distention, s/p paracentesis, normal BS. Extremities: no cyanosis, clubbing, or edema. Neurological: patient awake, alert, oriented x 3; cognitive function intact; pupils equally reactive to light and accomodation; cranial nerves II-XII grossly normal, moving all 4 extremities, no focal deficits, strength improved, mildly to moderately globally decreased. Psychiatric: affect appears normal, no acute evidence of depressive or anxiety feelings. Vitals/I&O's: Vital Signs Temp Pulse Resp BP Pulse Ox 97.9 F 95 16 120/71 95 05/07/18 02:00 05/07/18 04:00 05/07/18 02:00 05/07/18 02:00 05/07/18 02:00 Oxygen Delivery Method Room Air Weight: 116 lb 13.52 oz Body Mass Index (BMI) 21.3 Intake and Output for Last 24 Hours 05/05/18 05/06/18 05/07/18 23:59 23:59 23:59 Intake Total 2445 / 2445 3513 / 3513 Output Total 500 / 500 1050 / 1050 Balance 1945 / 1945 2463 / 2463 Microbiology Past 72 Hours 05/05/18 15:30 Fluid - Paracentesis (Abd) Gram Stain - Final 05/05/18 15:30 Fluid - Paracentesis (Abd) Body Fluid Culture - Preliminary No growth-Final to follow 05/05/18 14:55 Stool Enteric Bacteriology - Final 05/05/18 14:55 Stool C. difficile DNA Amplification - Final Laboratory Results 05/05/18 15:30: Fl Pathologist Comment Reviewed 05/06/18 06:15: Magnesium 1.7 05/06/18 06:15: Phosphorus 1.7 L Current Medications Al Hydroxide/Mg Hydroxide (Mylanta Ii) 15 ml PO Q4H PRN PRN PRN Reason: gastritis/GERD Last Admin: 05/06/18 20:19 Dose: 15 ml Calamine/Phenol (Calmoseptine Ointment) 1 applic TOPICAL TID ANANT PRN Reason: Protocol Last Admin: 05/07/18 05:42 Dose: 1 applicatio Diphenhydramine HCl (Benadryl) 25 mg PO Q6H PRN PRN PRN Reason: ITCHING Heparin Sodium (Beef Lung) (Heparin 500 Unit/5 Ml (100/Ml)) 500 unit IV UD PRN PRN Reason: HEPARIN FLUSH Heparin Sodium (Porcine) (Heparin Na) 5,000 unit SC Q12 [facility] Last Admin: 05/06/18 21:25 Dose: 5,000 unit Ciprofloxacin (Cipro) 400 mg in 200 mls @ 200 mls/hr IV Q12 [facility] Last Admin: 05/06/18 21:29 Dose: 200 mls/hr Potassium Chloride/Dextrose/Sod Cl (Kcl 20meq In D5.45ns 1000ml) 1,000 mls @ 100 mls/hr IV .Q10H [facility] Last Admin: 05/07/18 03:46 Dose: 100 mls/hr Ibuprofen (Motrin) 600 mg PO Q8H PRN PRN PRN Reason: MILD PAIN (1-3/10) Last Admin: 05/06/18 20:19 Dose: 600 mg Levothyroxine Sodium (Synthroid) 112 mcg PO DAILY@0600 [facility] Last Admin: 05/07/18 05:42 Dose: 112 mcg Magnesium Hydroxide (Milk Of Magnesia) 30 ml PO DAILY PRN PRN PRN Reason: Constipation Morphine Sulfate () 1 - 2 mg IV Q4H PRN PRN PRN Reason: Moderate Pain (pain scale 4-5) Ondansetron HCl (Zofran) 4 mg IV Q8H PRN PRN PRN Reason: Nausea Last Admin: 05/06/18 01:57 Dose: 4 mg Oxycodone HCl (Oxyir) 5 mg PO Q4H PRN PRN PRN Reason: Moderate Pain (pain scale 4-5) Pantoprazole Sodium (Protonix) 40 mg PO DAILY [facility] Potassium Phos/Sodium Phos (Neutra-Phos Packet) 1 packet PO 4X/DAYCM [facility] Last Admin: 05/06/18 21:25 Dose: 1 packet Sodium Chloride () 10 ml IV UD PRN PRN Reason: VAD FLUSH Last Admin: 05/06/18 06:23 Dose: 10 ml Medical Necessity - Tobacco Use Smoking Status: Never smoker Assessment/Plan All Active Problems Neutropenia (Acute) Acute cystitis (Acute) Fever (Acute) Drug rash (Acute) The patient is a 68 y/o F w/ PMHx: HTN, GERD, Hx Thyroid Nodule w/ Hypothyroidism, GERD, Metastatic Breast CA to Bone following w/ Dr. Barakat on current chemotherapy who presents to the [facility] ED on 05/05/18 with fever following chemotherapy. (1) Neutropenia secondary to Acute E. Coli UTI and Bacteremia: Admission CBC w/ WBC 2.7 w/ ANC 1.8, CXR w/ no acute findings, UA notable w/ pending UCx, CT A/P w/ multiple metastatic lesions in the liver with largest measuring 4 cm with moderate amount of free fluid in the abdomen and pelvis, multiple metastatic lesions in the lower thoracic spine, lumbar spine, sacrum and pelvic bones with pathological fractures in the upper endplate of T10, L1, L3. Bld cx x 2 with 1/2 GNR growth. UCx w/ preliminary GNR, pending futher speciation and sensitivities. Maintained upon admission initially on Neutropenic precautions, obtained mag and phos level given recent chemotherapy treatments with supplementation administered, maintain I&Os, initiated and continued with IV cipro w/ transition upon discharge to oral duracef given sensitivities. PRN tylenol, anti-emetics, pain regimen. 05/07/18 CBC w/ WBC 4.9, Hgb 8.8, Plts 179. (2) Elevated LFTs, Bilirubin w/ New Abdominal Ascites: Admission T Bili 1.20, D Bili 0.89, AST/ALT 78/46, CT A/P w/ multiple metastatic lesions in the liver with largest measuring 4 cm with moderate amount of free fluid in the abdomen and pelvis, multiple metastatic lesions in the lower thoracic spine, lumbar spine, sacrum and pelvic bones with pathological fractures in the upper endplate of T10, L1, L3. Likely secondary to liver metastatic disease, s/p paracentesis with ascitic fluid cytology and culture pending. Continue on spironolactone plus or minus Lasix pending continued status with possibility of future Pleurx catheter need if patient becomes refractory with malignant ascites to be directed per her heme oncologist. 05/07/18 CMP w/ AST/ALT 84/44, Alk phos 546. (3) Metastatic breast cancer: Noted metastatic disease to lung, liver, bone with pending workup as noted #2, positive treatment options discussed with patient including outpatient and possible hospice palliative referral per Dr. Barakat, depending on #2 and ongoing presentation may require a Pleurx catheter if refractory with malignant ascites. (4) Acute kidney injury: Secondary to acute presentation #1, dehydration, improving. 05/05/18 BUN/Cr 26/1.31, prior baseline creatinine noted to be 0.8. Hydrated, held nephrotoxic medications, trend BMP. 05/07/18 BUN/Cr 15/0.87. (5) Hypertension: Given CHUN resolution, restarted home regimen including lisinopril, triamterene, hydrochlorothiazide, PRN hydralazine. (6) Hypokalemia: Admission K+ 3.3, supplementation given, improved, 05/06/18 K 3.8-->05/07/18 K 4.0. (7) Hypothyroidism: Continue home synthroid regimen. (8) GERD: PPI. (9) DVT Prophylaxis: SCDs, heparin. (10) CODE status: FULL CODE status.
[2018-05-07 07:46] LABS: Absolute Lymphocyte Count 1.08 X10^3/ul (0.83-4.51); Absolute Neutrophil Count 2.9 X10^3/uL (2.0-7.7); Basophil# 0.02 X10^3/uL; Basophil% 0.4 % (0-1); Hemoglobin 8.8 g/dl (12.0-15.0); Lymphocyte # 1.08 X10^3/ul (4.0); Lymphocyte % 22.1 % (19-41); Mean Corp Hgb Conc 33.8 g/gl (32-36); Mean Corpuscular Hgb 30.8 pg (27.0-32.0); Mean Corpuscular Volume 90.9 fL (81-99); Mean Platelet Vol. 10.2 fl (6.2-12.0); Monocyte# 0.76 X10^3/uL; Monocyte% 15.5 % (0-10); Neutrophil % 59.4 % (47-70); Platelet Count 179 K/mm3 (150-450); RBC Distribution Width CV 18.2 % (11.6-14.6); RBC Distribution Width SD 60.5 fl (35.1-43.9); Red Blood Count 2.86 M/mm3 (4.2-5.4); White Blood Count 4.9 K/mm3 (4.4-11.0)
[2018-05-07 07:48] LABS: POSITIVE COUNT NO; POSITIVE DIFFERENTIAL NO; POSITIVE MORPHOLOGY YES
[2018-05-07 07:49] LABS: Differential Indicated SCAN CRITERIA MET
[2018-05-07 07:55] VITALS: BP 128/81; PULSE 96; RESP 16; TEMP 36.3; O2SAT 99
[2018-05-07 08:05] LABS: ALB/GLOB Ratio 0.5 RATIO (0.9-2.4); AST(SGOT) 84 U/L (15-37); Alanine Aminotransfer ALT/SGPT 44 U/L (13-56); Albumin, Serum 1.7 g/dL (3.2-5.0); Alkaline Phosphatase 546 U/L (45-117); Anion Gap 12 (5-15); BUN 15 mg/dL (7-18); BUN/Creat Ratio 17.2 RATIO (10-20); Calcium,Total 7.3 mg/dL (8.5-10.1); Chloride 107 mmol/L (98-107); Creatinine, Serum 0.87 mg/dL (0.55-1.02); EST Glomerular Filtration Rate 69 mL/min (>60); Est Glom Filt Rate - Afr Amer 84 mL/min (>60); Estimated Creatinine Clearance 49.63 ml/min; Globulin 3.3 g/dL (2.2-4.2); Glucose 82 mg/dL (74-106); Sodium Level 136 mmol/L (136-145)
[2018-05-07 08:17] LABS: Anisocytosis RARE; Hypochromasia 2+; Platelet Estimate ADEQUATE (ADEQ); Platelet Morphology LARGE
[2018-05-07 08:18] LABS: Differential Comment SCANNED
--- NOTE | 2018-05-07 08:29 | PCM.DC ---
- Discharge Diagnoses Current Active Problems: Current Active and Chronic Problems 1) Neutropenia with fever secondary to Acute E Coli UTI and Bacteremia (2) Elevated LFTs, Bilirubin w/ New Abdominal Ascites suspected secondary to Metastatic Breast CA (3) Metastatic breast cancer (4) Acute kidney injury, Secondary to acute presentation #1, dehydration (5) Hypertension (6) Hypokalemia (7) Hypothyroidism (8) GERD You will use the following diet at home:: No restrictions Your food should be the consistency of: Regular Your liquids should be the consistency of: Regular/Thin Discharge Activity: - - Return to moderate activity with slow progression. Maintain fall precautions. Do not advance activity until completed antibiotic therapies and cleared per your primary care physician. Weight Bearing Status: Weight bearing as tolerated Call your doctor if you observe: Fever of 101 or Higher, Inability to urinate, Inability to have a bowel movement, Shortness of breath, Dizziness, Fainting spells, Chest pain, Uncontrolled pain Instructions: Urinary Tract Infections in Women, Understanding Urinary Tract Infections (UTIs) Additional Instructions: Please have re-evaluation per your primary care physician as noted. May consider repeat complete blood count and basic metabolic panel given acute kidney injury and bacterial infection both in the urine and blood. Allergies/Adverse Reactions: Allergies iodine Allergy (Verified 05/05/18 02:47) Swelling PT AVOIDS IODINE DUE TO SHELLFISH ALLERGY poison cher extract [Poison Cher Extract] Allergy (Verified 05/05/18 02:47) Hives shellfish derived Allergy (Verified 05/05/18 02:47) Hives zolpidem [From Ambien] Adverse Reaction (Mild, Verified 05/05/18 02:47) Other Patient states she lists as allergy b/c she does not ever want to take Medications to take at Discharge Levothyroxine [Synthroid] 125 mcg PO DAILY 07/04/14 Potassium Chloride 10 meq PO BID 07/19/17 DiphenhydrAMINE [Benadryl] 25 mg PO Q6H PRN PRN capsule 07/21/17 Lisinopril 5 mg PO DAILY 05/04/18 Prilosec 40 mg PO DAILY 05/04/18 Triamterene 37.5MG/Hctz 25MG [Maxzide 37.5 mg-25 mg Tablet] 1 tablet PO DAILY 05/05/18 Cefadroxil [Duracef] 1,000 mg PO BID #24 cap 05/07/18 Na Biphos/Potassium Phosphate [Neutra-Phos Packet] 1 packet PO 4X/DAYCM #20 packet 05/07/18 The following prescriptions were given: Cefadroxil [Duracef] 1,000 mg PO BID #24 cap Na Biphos/Potassium Phosphate [Neutra-Phos Packet] 1 packet PO 4X/DAYCM #20 packet Primary Care Physician: Care Physician,No Primary [Primary Care Provider] - Please follow up with your Primary Care Physician in: Follow-up with your primary care within 3-5 days. Test Results: Test results from this visit will be discussed in further detail at your follow-up appointment, if applicable. Please Follow Up With: Betzaida Barakat MD When: Follow-up this coming week per his request. Proposed Discharge Date: 05/07/18
--- NOTE | 2018-05-07 08:42 | PCM.DC.SUM ---
Discharge Date and Diagnosis - Problem List Patient Problems: Active and Suspected Problems Neutropenia (Acute) Ascites, malignant (Suspected) Date of Admission: 05/05/18 Date of Discharge: 05/07/18 - Primary Discharge Diagnosis Active and Suspected Problems (1) Neutropenia with fever secondary to Acute E Coli UTI and Bacteremia (2) Elevated LFTs, Bilirubin w/ New Abdominal Ascites suspected secondary to Metastatic Breast CA (3) Metastatic breast cancer (4) Acute kidney injury, Secondary to acute presentation #1, dehydration (5) Hypertension (6) Hypokalemia (7) Hypothyroidism (8) GERD - Secondary Discharge Diagnosis Chronic Problems Breast cancer metastasized to bone (Chronic) GERD (gastroesophageal reflux disease) (Chronic) Hypertension (Chronic) History of breast cancer (Chronic) Thyroid nodule (Chronic) Hospital Course and Treatment Operations: - - Total thyroidectomy Summary of Care Provided: The patient is a 68 y/o F w/ PMHx: HTN, GERD, Hx Thyroid Nodule w/ Hypothyroidism, GERD, Metastatic Breast CA to Bone following w/ Dr. Barakat on current chemotherapy who presented to the [facility] [place] ED on 05/05/18 with fever following chemotherapy. Admission CBC w/ WBC 2.7 w/ ANC 1.8, CXR w/ no acute findings, UA notable w/ pending UCx, CT A/P w/ multiple metastatic lesions in the liver with largest measuring 4 cm with moderate amount of free fluid in the abdomen and pelvis, multiple metastatic lesions in the lower thoracic spine, lumbar spine, sacrum and pelvic bones with pathological fractures in the upper endplate of T10, L1, L3. Bld cx x 2 with 1/2 GNR growth w/ eventual UCx and Bld Cx w/ E. Coli. Maintained upon admission initially on Neutropenic precautions, obtained mag and phos level given recent chemotherapy treatments with supplementation administered, maintained I&Os, initiated and continued with IV cipro w/ transition upon discharge to oral duracef given sensitivities. Admission T Bili 1.20, D Bili 0.89, AST/ALT 78/46, CT A/P w/ multiple metastatic lesions in the liver with largest measuring 4 cm with moderate amount of free fluid in the abdomen and pelvis, multiple metastatic lesions in the lower thoracic spine, lumbar spine, sacrum and pelvic bones with pathological fractures in the upper endplate of T10, L1, L3. Likely secondary to liver metastatic disease, s/p paracentesis with ascitic fluid cytology and culture pending. Per Dr. Barakat noted possibility of future Pleurx catheter need if patient becomes refractory with malignant ascites to be directed per her heme oncologist. 05/07/18 CMP w/ AST/ALT 84/44, Alk phos 546. Patient upon presentation w/ Acute kidney injury secondary to acute presentation and dehydration, improved with prior baseline creatinine noted to be 0.8 w/ temporarily hold on nephrotoxic medications and continued IVFs w/ 05/07/18 BUN/Cr 15/0.87. Patient discharged to home on antibiotic regimen with recommended follow-up with primary care physician and her oncologist per his request. Discharge Activity: - - Return to moderate activity with slow progression. Maintain fall precautions. Do not advance activity until completed antibiotic therapies and cleared per your primary care physician. Weight Bearing Status: Weight bearing as tolerated Call your doctor if you observe: Fever of 101 or Higher, Inability to urinate, Inability to have a bowel movement, Shortness of breath, Dizziness, Fainting spells, Chest pain, Uncontrolled pain Home Medications: Medications to take at Discharge Levothyroxine [Synthroid] 125 mcg PO DAILY 07/04/14 Potassium Chloride 10 meq PO BID 07/19/17 DiphenhydrAMINE [Benadryl] 25 mg PO Q6H PRN PRN capsule 07/21/17 Lisinopril 5 mg PO DAILY 05/04/18 Prilosec 40 mg PO DAILY 05/04/18 Triamterene 37.5MG/Hctz 25MG [Maxzide 37.5 mg-25 mg Tablet] 1 tablet PO DAILY 05/05/18 Cefadroxil [Duracef] 1,000 mg PO BID #24 cap 05/07/18 Na Biphos/Potassium Phosphate [Neutra-Phos Packet] 1 packet PO 4X/DAYCM #20 packet 05/07/18 Following Prescrptions Were Given to Patient: Cefadroxil [Duracef] 1,000 mg PO BID #24 cap Na Biphos/Potassium Phosphate [Neutra-Phos Packet] 1 packet PO 4X/DAYCM #20 packet Primary Care Physician: Care Physician,No Primary [Primary Care Provider] - Please follow up with your Primary Care Physician in: Follow-up with your primary care within 3-5 days. Please Follow Up With: Betzaida Barakat MD When: Follow-up this coming week per his request. Patient Instructions: Urinary Tract Infections in Women, Understanding Urinary Tract Infections (UTIs) Disposition: Home Minutes spent on discharge:: 35 Patient Condition:: Fair Medical Necessity - Tobacco Use Smoking Status: Never smoker Meaningful Use Info Meaningful Use Diagnoses (Choose all that apply): None applicable Code Visit Inpatient E&M: 03530 Disch Hosp
[2018-05-07] MEDS: Na Biphos/Potassium Phosphate PACKET 1 PACKET PO (09:34)
[2018-05-07] MEDS: Heparin Injection (Vial) 5,000 UNIT/ML VIAL 5000 UNIT SC (09:35)
[2018-05-07] MEDS: Pantoprazole Sodium 40 MG Tablet PO (09:35)
[2018-05-07] MEDS: Ciprofloxacin 400 MG/200 ML BAG 200 MG IV (09:37)
[2018-05-07] MEDS: 0.9% NaCl VAD Flush 10 ML IV (11:44)
--- NOTE | 2018-05-08 15:18 | CASEMGMT ---
TATIANA DUMONT Discharge Follow-Up Phone Call. LACE: 10 Strata: 3 Discharge Date: 05/07/18 Adm Dx: Neutropenic Fever, UTI Attempted discharge follow-up phone call. Call placed to . No answer and no answering machine or voicemail message heard so unable to leave message for return call. Pricila GERBER RN CM
[2018-05-12 18:47] LABS: Glucose, Body Fluid 113 mg/dL (40-70)
== END 2018-05-07 12:09 | disposition home or self-care (01) | DRG 809 ==
LOC: ED 21:17 → MS3 05-05 02:04
PROVIDERS: Hospitalist; Admitting Provider Family Medicine; Emergency Provider Emergency Medicine; Visit Provider Family Medicine
DX: D70.3 Neutropenia due to infection (principal); C79.51 Secondary malignant neoplasm of bone; C78.7 Secondary malignant neoplasm of liver and intrahepatic bile duct; C78.00 Secondary malignant neoplasm of unspecified lung; R78.81 Bacteremia; R18.8 Other ascites; N17.9 Acute kidney failure, unspecified; N30.00 Acute cystitis without hematuria; M84.58XA Pathological fracture in neoplastic disease, other specified site, initial encounter for fracture; R50.81 Fever presenting with conditions classified elsewhere; Z85.3 Personal history of malignant neoplasm of breast; E86.0 Dehydration; I10 Essential (primary) hypertension; E03.9 Hypothyroidism, unspecified; E87.6 Hypokalemia; B96.20 Unspecified Escherichia coli [E. coli] as the cause of diseases classified elsewhere; K21.9 Gastro-esophageal reflux disease without esophagitis; Z79.899 Other long term (current) drug therapy
CPT/HCPCS: 36415; 36591; 49083; 71045; 74176; 80048; 80053; 80076; 81001; 82945; 83615; 83690; 83735; 84100; 84157; 85025; 85027; 85610; 85730; 87040; 87070; 87075; 87077; 87086; 87088; 87186; 87205; 87493; 87506; 88108; 88305; 88313; 88341; 88342; 89050; 97802; 99282; J7030; J7040; A4216; J0744; J2405

== ENCOUNTER 2018-06-03 15:38 | Inpatient (IN) | payer MEDICARE, OTHER, SELFPAY ==
[2018-06-03 15:40] VITALS: BP 109/73; PULSE 91; RESP 16; TEMP 36.4; O2SAT 100; BMI 16.2
--- NOTE | 2018-06-03 15:56 | EKG12_ITS ---
Test Reason : WEAKNESS Blood Pressure : / mmHG Vent. Rate : 098 BPM Atrial Rate : 098 BPM P-R Int : 128 ms QRS Dur : 066 ms QT Int : 376 ms P-R-T Axes : 056 -04 079 degrees QTc Int : 480 ms Normal sinus rhythm Nonspecific T wave abnormality Prolonged QT Abnormal ECG Confirmed by LUIS CARLOS CHAVEZ, ELSA ([id number]), deputy editor in chief SMITH ROBB ([id number] on 06/05/2018 1:27:05 PM Referred By: AMY Confirmed By:ELSA ALDRIDGE MD
--- NOTE | 2018-06-03 16:01 | ED.VISSUMM ---
- ER Visit Summary Date of Service: 06/03/18 Chief Complaint: Weakness History of Present Illness: The patient is a 68 F worsening weakness over the past 2 days. History of metastatic breast cancer followed by Dr. Barakat. Patient started on a new chemo pill 6 days ago taken twice a day. Admitted less than a month ago for neutropenic fever with E. coli UTI, liver failure with ascites. Status post paracentesis. Patient was admitted for 1 week, was able to go home. Family has been checking on her and helping daily, yesterday was taken over to the daughter's house due to increasing weakness. No falls. No chest pains. Cough with productive sputum 2 days ago. No fevers. No urinary symptoms, however daughter states has been darker. Noting more yellowing of eyes. Physical Examination: General: Alert and oriented to person and place, year was 1966, no acute distress HEENT: Normocephalic, atraumatic. Scleral icterus moist mucosa membranes Neck: supple, nontender. Cardiovascular: Regular rate and rhythm, no murmurs Respiratory: Normal breath sounds, symmetric, no distress Abdomen: Soft, nontender, nondistended Extremities: Nontender, no edema, pulses intact ?4 Neuro: no focal neurological deficits. Test Results: White count 6.7. Creatinine 3.85. Potassium 3.1. INR 1.2. Direct bili 4.21. Total bili 5. ALP 864. ALT 87. AST 255. UA pending. Chest x-ray pending. Ammonia level 104. EKG sinus rhythm 98. No ST changes. T wave inversions V1 to V3. Emergency Department Course and Treatment: Patient nontoxic, she did have scleral icterus. Workup initiated with her known liver failure history recently with her metastatic cancer. She notes to have acute kidney injury with transaminitis and hyperbilirubinemia. Ammonia level is 104. Chest x-ray pending urine is pending. I did discuss with hospitalist Dr. Stanley who did evaluate the patient in the ED. Saw the labs, did agree with starting lactulose. She was admitted to the medical surgery floor for further management. I spoke with her oncologist Dr. Barakat who states her new medication of started would cause liver failure. He recommends stopping this medication. He did state last admission date to discuss possible hospice care and this was the last trial for her. He states he will see her as an inpatient and we discussed hospice care. Treatment Plan: [] Disposition: Admission Impression: 1. Hepatic encephalopathy 2. Hyperbilirubinemia 3. Metastatic breast cancer 4. Acute kidney injury This note was generated with [employer] dictation software. It may contain incorrect words, spelling, and punctuation that were not noted in review of the chart prior to signing ED Disposition - Plan for ED Patient: Disposition: [facility] Chief Complaint: Weakness Diagnosis: Hepatic encephalopathy, Acute kidney injury, Hyperbilirubinemia, Metastatic breast cancer Referrals: Care Physician,No Primary [NON-STAFF] -
[2018-06-03 16:32] LABS: Absolute Lymphocyte Count 1.71 X10^3/ul (0.83-4.51); Absolute Neutrophil Count 4.7 X10^3/uL (2.0-7.7); Basophil# 0.02 X10^3/uL; Basophil% 0.3 % (0-1); Eosinophil# 0.05 X10^3/uL; Eosinophils% 0.7 % (0-5); Hematocrit 32.9 % (37-47); Hemoglobin 10.9 g/dl (12.0-15.0); Lymphocyte # 1.71 X10^3/ul (4.0); Lymphocyte % 25.6 % (19-41); Mean Corp Hgb Conc 33.1 g/gl (32-36); Mean Corpuscular Hgb 31.3 pg (27.0-32.0); Mean Corpuscular Volume 94.5 fL (81-99); Mean Platelet Vol. 10.2 fl (6.2-12.0); Monocyte# 0.21 X10^3/uL; Monocyte% 3.1 % (0-10); Neutrophil # 4.68 X10^3/uL (2.7-7.7); Platelet Count 277 K/mm3 (150-450); RBC Distribution Width CV 21.6 % (11.6-14.6); RBC Distribution Width SD 73.9 fl (35.1-43.9); Red Blood Count 3.48 M/mm3 (4.2-5.4); White Blood Count 6.7 K/mm3 (4.4-11.0)
[2018-06-03 16:34] LABS: Differential Indicated SCAN CRITERIA MET; POSITIVE COUNT NO; POSITIVE DIFFERENTIAL NO; POSITIVE MORPHOLOGY YES
[2018-06-03 16:36] LABS: International Normalized Ratio 1.2; Prothrombin Time (Protime)PT. 15.5 SECONDS (11.7-14.9)
[2018-06-03 16:37] LABS: Partial Thromboplast Time 30.3 Seconds (24.1-36.2)
--- NOTE | 2018-06-03 17:02 | PCM.HP.STD ---
Problem List (1) Hypothyroidism Status: Chronic Qualifiers: Hypothyroidism type: unspecified Qualified Code(s): E03.9 - Hypothyroidism, unspecified (2) Breast cancer metastasized to bone Status: Chronic Qualifiers: Laterality: unspecified laterality Qualified Code(s): C50.919 - Malignant neoplasm of unspecified site of unspecified female breast; C79.51 - Secondary malignant neoplasm of bone (3) GERD (gastroesophageal reflux disease) Status: Chronic Qualifiers: Esophagitis presence: esophagitis presence not specified Qualified Code(s): K21.9 - Gastro-esophageal reflux disease without esophagitis (4) Hypertension Status: Chronic Qualifiers: Hypertension type: essential hypertension (5) Thyroid nodule Status: Chronic (6) Ascites, malignant Status: Chronic History of Present Illness Date of Admission: 06/03/18 Chief Complaint: Weakness, Fatigue, N/V after start new chemotherapy The patient is a 68 y/o F w/ PMHx: HTN, GERD, Hx Thyroid CA w/ Hypothyroidism, GERD, Metastatic Breast CA to Bone following w/ Dr. Barakat recently transitioned to new chemotherapeutic oral agent ~ 1 week prior with recent admission 05/05/18 w/ neutropenic fever secondary to acute E. Coli UTI w/ bacteremia and noted elevated LFTs, Bilirubin w/ abdominal ascites secondary to metastatic breast CA as well as CHUN who now re-presents to the [facility] ED on 06/03/18 with history of starting chemotherapeutic new regimen with onset since fatigue, weakness, malaise, nausea with emesis with poor intake in addition to increased scleral icterus. Family notes also recently more confused. In the ED work-up included T 97.5, HR 91, BP 109/73, RR 16, 100% on RA, CBC with WBC 6.7, hemoglobin 10.9, platelet 277 without shift, coags with PT 15.5 otherwise unremarkable, CMP with potassium 3.1, BUN/Cr 73/3.85 (baseline Cr 0.7-0.8), total bilirubin 5, direct bilirubin 4.21, AST/ALT 255/87, Alk phos 864, Ammonia 104, trop < 0.015, UA ordered per ED but not yet obtained. In the ED patient administered NS, lactulose therapy. Past Medical History Past Medical History (Chronic Problems): Chronic Problems Ascites, malignant (Chronic) Hypothyroidism (Chronic) Breast cancer metastasized to bone (Chronic) GERD (gastroesophageal reflux disease) (Chronic) Hypertension (Chronic) History of breast cancer (Chronic) Thyroid nodule (Chronic) Allergies iodine Allergy (Verified 06/03/18 15:44) Swelling PT AVOIDS IODINE DUE TO SHELLFISH ALLERGY poison cher extract [Poison Cher Extract] Allergy (Verified 06/03/18 15:44) Hives shellfish derived Allergy (Verified 06/03/18 15:44) Hives zolpidem [From Ambien] Adverse Reaction (Mild, Verified 06/03/18 15:44) Other Patient states she lists as allergy b/c she does not ever want to take Home Medications: Ambulatory Orders Medication Instructions Recorded DiphenhydrAMINE [Benadryl] 25 mg PO Q6H PRN PRN capsule 07/21/17 Triamterene 37.5MG/Hctz 25MG 1 tablet PO DAILY 05/05/18 [Maxzide 37.5 mg-25 mg Tablet] Abemaciclib [Verzenio] 200 mg PO BID 06/03/18 Cefadroxil [Cefadroxil] 1 gm PO Q12H 06/03/18 Furosemide [Lasix] 20 mg PO DAILY 06/03/18 Levothyroxine Sodium [Synthroid] 125 mcg PO DAILY 06/03/18 Lisinopril [Zestril] 5 mg PO DAILY 06/03/18 Melatonin 3 mg PO QHS 06/03/18 Multivitamin [Multiple Vitamins] 1 tab PO DAILY 06/03/18 Omeprazole 40 mg PO DAILY 06/03/18 Surgical History: - - Masctectomy, Thyroid Resection, Port. Psychiatric History: No pertinent psych hx [employer] History: - - Vaginal delivery x 4. Lives: With Family Smoking Status: Never smoker Tobacco Use: Non-smoker Alcohol: None Drugs: None - *Family History Maternal History Items: Unknown Paternal History Items: No pertinent history Review of Systems Constitutional: Reports: Anorexia, Malaise, Weakness, Fatigue. Denies: Chills, Fever, Weight Change HEENT: Denies: Head Aches, Sinus Congestion, Sinus Drainage Cardiovascular: Denies: Chest Pain, Palpitations Respiratory: Denies: Cough, Shortness of breath at rest, Sputum production Gastrointestinal: Reports: Diarrhea, Nausea, Vomiting. Denies: Abdominal Pain Genitourinary: Denies: Dysuria Musculoskeletal: Reports: Back Pain. Denies: Joint Pain, Joint Tenderness Skin: Denies: Rash, Wounds Neurological: Reports: Confusion. Denies: Focal weakness, Numbness, Tingling Psychiatric: Denies: Anxiety, Depression, Homicidal Ideations, Suicidal Ideations Hematologic/ Lymphatic: Reports: Anemia, Easy Bruising, Easy Bleeding VTE Information - Inpt Only VTE Present on Admission: No VTE Mechan Device Prophylaxis: SCD's VTE Pharm Prophylaxis ordered?: No Reason prophylaxis not ordered:: Medical Contraindication Subjective: Seated upright in the ED bed, fatigued appearance. Objective: Physical Examination: General: awake, alert to questioning, oriented to self, place, recent events but daughter noting she has confusion about some recent events, cooperative, seated upright in the ED bed, fatigued appearance. Skin: normal color, turgor, + icterus, cyanosis. HEENT: AT/NC, EOMI, PERRLA, dry MM, no carotid bruits or JVD noted, + scleral icterus. Lungs: Diminished BS BL, > bases, poor effort, no rales, ronchi or wheezing. Heart: Regular rate and rhythm; no gallop, rub audible. Abdomen: soft, NTTP, ND, notable improved ascites abd from prior presentation, normal BS, + HM. Extremities: no cyanosis, clubbing, BL ankle edema, non-pitting. Neurological: patient awake, alert, oriented as noted; cognitive function decreased from baseline; pupils equally reactive to light and accomodation; cranial nerves II-XII grossly normal, moving all 4 extremities, no focal deficits, strength severely globally decreased secondary to acute presentation. Psychiatric: affect appears fatigued, flat, no acute evidence of depressive or anxiety feelings. - Physical Exam Vital Signs Temp Pulse Resp BP Pulse Ox 97.5 F L 91 16 109/73 100 06/03/18 15:40 06/03/18 15:40 06/03/18 15:40 06/03/18 15:40 06/03/18 15:40 Oxygen Delivery Method Room Air Weight: 106 lb 7.732 oz Body Mass Index (BMI) 16.2 Laboratory Tests Past 24 Hrs 06/03/18 06/03/18 06/03/18 16:10 16:10 16:10 WBC 6.7 RBC 3.48 L Hgb 10.9 L Hct 32.9 L MCV 94.5 MCH 31.3 MCHC 33.1 RDW 21.6 H RDW Differential 73.9 H Plt Count 277 MPV 10.2 Immature Gran % (Auto) 0.300 Neut % (Auto) 70.0 Lymph % (Auto) 25.6 [place] % (Auto) 3.1 Eos % (Auto) 0.7 Baso % (Auto) 0.3 Absolute Neuts (auto) 4.7 Absolute Lymphs (auto) 1.71 Total Counted Pending PT 15.5 H INR 1.2 APTT 30.3 Sodium Pending Potassium Pending Chloride Pending Carbon Dioxide Pending Anion Gap Pending BUN Pending Creatinine Pending Est GFR (MDRD) Af Amer Pending Est GFR (MDRD) Non-Af Pending BUN/Creatinine Ratio Pending Glucose Pending Calcium Pending Total Bilirubin Pending Direct Bilirubin Pending AST Pending ALT Pending Alkaline Phosphatase Pending Ammonia Troponin I Pending Total Protein Pending Albumin Pending 06/03/18 16:10 WBC RBC Hgb Hct MCV MCH MCHC RDW RDW Differential Plt Count MPV Immature Gran % (Auto) Neut % (Auto) Lymph % (Auto) [place] % (Auto) Eos % (Auto) Baso % (Auto) Absolute Neuts (auto) Absolute Lymphs (auto) Total Counted PT INR APTT Sodium Potassium Chloride Carbon Dioxide Anion Gap BUN Creatinine Est GFR (MDRD) Af Amer Est GFR (MDRD) Non-Af BUN/Creatinine Ratio Glucose Calcium Total Bilirubin Direct Bilirubin AST ALT Alkaline Phosphatase Ammonia Pending Troponin I Total Protein Albumin Assessment/Plan All Active Problems Neutropenia (Acute) Acute cystitis (Acute) Fever (Acute) Drug rash (Acute) The patient is a 68 y/o F w/ PMHx: HTN, GERD, Hx Thyroid Nodule w/ Hypothyroidism, GERD, Metastatic Breast CA to Bone following w/ Dr. Barakat recently transitioned to new chemotherapeutic oral agent ~ 1 week prior with recent admission 05/05/18 w/ neutropenic fever secondary to acute E. Coli UTI w/ bacteremia and noted elevated LFTs, Bilirubin w/ abdominal ascites secondary to metastatic breast CA as well as CHUN who now re-presents to the [facility] ED on 06/03/18 with history of starting chemotherapeutic new regimen with onset since fatigue, weakness, malaise, nausea with emesis with poor intake in addition to increased scleral icterus in addition to confusion x 2 days. (1) Acute Encephalopathy secondary to Elevated LFTs, Bilirubin w/ Recent Abdominal Ascites, Hyperammonia Improved from prior Suspected secondary to Metastatic Breast Cancer in addition to #2: ED work-up included T 97.5, HR 91, BP 109/73, RR 16, 100% on RA, CBC with WBC 6.7, hemoglobin 10.9, platelet 277 without shift, coags with PT 15.5 otherwise unremarkable, CMP with potassium 3.1, BUN/Cr 73/3.85 (baseline Cr 0.7-0.8), total bilirubin 5, direct bilirubin 4.21, AST/ALT 255/87, Alk phos 864, Ammonia 104, trop < 0.015. Recent 04/2018 CT A/P w/ multiple metastatic lesions in the liver with largest measuring 4 cm with moderate amount of free fluid in the abdomen and pelvis, multiple metastatic lesions in the lower thoracic spine, lumbar spine, sacrum and pelvic bones with pathological fractures in the upper endplate of T10, L1, L3. Will admit to [facility], maintain on IVFs given concurrent CHUN, continue lactulose, trend CMP and NH, repeat liver US as expecting worsening disease progress/metastatic progression, consult Oncologist Dr. Barakat, obtain mag and phos levels, fall precautions, PT and OT, CM consults for discharge planning. Holding nephrotoxic regimen as noted given severe CHUN. (2) Acute kidney injury: Secondary to poor oral intake, suspect hypovolemic, prerenal in addition to possible relation to new medications w/ worsening progressive metastatic breast CA. Admission BUN/Cr 73/3.85, prior baseline creatinine noted to be 0.7-0.8. Will hydrate, hold nephrotoxic medications and repeat chemistry in AM. If no improvement would plan FeNa assessment. (3) Metastatic breast cancer: Noted metastatic disease to lung, liver, bone as noted, per prior discussions Dr. Barakat had encouraged palliative/hospice considerations but patient and family resistant, currently transitioned to new agent BID. Will consult Dr. Barakat, obtain mag and phos levels and replete as needed. (4) Hypokalemia: Admission K+ 3.1, supplementation given, repeat level in AM. (5) Hypertension: Holding lisinopril, triamterene and hydrochlorthiazide given CHUN presentation, PRN hydralazine. (6) Hypothyroidism: Hx thyroid CA remotely s/p thyroidectomy. Continue home synthroid regimen. (7) Moderate to Severe Protein-Calorie Malnutrition: Evidenced per BMI, habitus, muscle and fat loss, nutrition consulted. (8) GERD: PPI. (9) DVT Prophylaxis: SCDs, given liver dysfunction although INR not elevated will defer chemoprophylaxis in case function worsens, may add if appropriate. (10) CODE status: Patient has living will in place. Daughter is HCPOA. Again, discussed CODE status at length including difference between FULL code, DNR-CCA and DNR-CC status. Following discussions about the differences in these status, requested Full Code status. Discussed likely poor outcome given her disease history and likely trauma to the body. Patient daughter amenable to concept of decreasing from Full Code status but patient remains Full Code per herself. Advanced Care Planning Face to Face Time: 17 minutes. Code Visit Inpatient E&M: 14983 Init Hosp L3 Procedures: 49895 Advncd Care Plan 30 Min
[2018-06-03] MEDS: 0.9% Normal Saline 1,000 ML 125 ML IV (17:05)
[2018-06-03 17:06] LABS: AST(SGOT) 255 U/L (15-37); Alanine Aminotransfer ALT/SGPT 87 U/L (13-56); Albumin, Serum 1.7 g/dL (3.2-5.0); Alkaline Phosphatase 864 U/L (45-117); Anion Gap 13 (5-15); BUN 73 mg/dL (7-18); Bilirubin, Direct 4.21 mg/dL (0.00-0.30); Calcium,Total 7.7 mg/dL (8.5-10.1); Chloride 106 mmol/L (98-107); Creatinine, Serum 3.85 mg/dL (0.55-1.02); EST Glomerular Filtration Rate 12 mL/min (>60); Est Glom Filt Rate - Afr Amer 15 mL/min (>60); Estimated Creatinine Clearance 10.81 ml/min; Globulin 4.1 g/dL (2.2-4.2); Glucose 90 mg/dL (74-106); Potassium 3.1 mmol/L (3.5-5.1); Protein, Total 5.8 g/dL (6.4-8.2); Sodium Level 143 mmol/L (136-145)
--- NOTE | 2018-06-03 17:19 | HP.PCM_ITS ---
Problem List (1) Hypothyroidism Status: Chronic Qualifiers: Hypothyroidism type: unspecified Qualified Code(s): E03.9 - Hypothyroidism , unspecified (2) Breast cancer metastasized to bone Status: Chronic Qualifiers: Laterality: unspecified laterality Qualified Code(s): C50.919 - Malignant neoplasm of unspecified site of unspecified female breast; C79.51 - Secondary malignant neoplasm of bone (3) GERD (gastroesophageal reflux disease) Status: Chronic Qualifiers: Esophagitis presence: esophagitis presence not specified Qualified Code(s) : K21.9 - Gastro-esophageal reflux disease without esophagitis (4) Hypertension Status: Chronic Qualifiers: Hypertension type: essential hypertension (5) Thyroid nodule Status: Chronic (6) Ascites, malignant Status: Chronic History of Present Illness Date of Admission: 06/03/18 Chief Complaint: Weakness, Fatigue, N/V after start new chemotherapy The patient is a 68 y/o F w/ PMHx: HTN, GERD, Hx Thyroid CA w/ Hypothyroidism, GERD, Metastatic Breast CA to Bone following w/ Dr. Barakat recently transitioned to new chemotherapeutic oral agent ~ 1 week prior with recent admission 05/05/18 w/ neutropenic fever secondary to acute E. Coli UTI w/ bacteremia and noted elevated LFTs, Bilirubin w/ abdominal ascites secondary to metastatic breast CA as well as CHUN who now re-presents to the [facility] ED on 06/03/18 with history of starting chemotherapeutic new regimen with onset since fatigue, weakness, malaise, nausea with emesis with poor intake in addition to increased scleral icterus. Family notes also recently more confused. In the ED work-up included T 97.5, HR 91, BP 109/73, RR 16, 100% on RA, CBC with WBC 6.7, hemoglobin 10.9, platelet 277 without shift, coags with PT 15.5 otherwise unremarkable, CMP with potassium 3.1, BUN/Cr 73/3.85 (baseline Cr 0.7-0.8), total bilirubin 5, direct bilirubin 4.21, AST/ALT 255/87, Alk phos 864, Ammonia 104, trop < 0.015, UA ordered per ED but not yet obtained. In the ED patient administered NS, lactulose therapy. Past Medical History Past Medical History (Chronic Problems): Chronic Problems Ascites, malignant (Chronic) Hypothyroidism (Chronic) Breast cancer metastasized to bone (Chronic) GERD (gastroesophageal reflux disease) (Chronic) Hypertension (Chronic) History of breast cancer (Chronic) Thyroid nodule (Chronic) Allergies iodine Allergy (Verified 06/03/18 15:44) Swelling PT AVOIDS IODINE DUE TO SHELLFISH ALLERGY poison cher extract [Poison Cher Extract] Allergy (Verified 06/03/18 15:44) Hives shellfish derived Allergy (Verified 06/03/18 15:44) Hives zolpidem [From Ambien] Adverse Reaction (Mild, Verified 06/03/18 15:44) Other Patient states she lists as allergy b/c she does not ever want to take Home Medications: Ambulatory Orders Medication Instructions Recorded DiphenhydrAMINE [Benadryl] 25 mg PO Q6H PRN PRN capsule 07/21/17 Triamterene 37.5MG/Hctz 25MG 1 tablet PO DAILY 05/05/18 [Maxzide 37.5 mg-25 mg Tablet] Abemaciclib [Verzenio] 200 mg PO BID 06/03/18 Cefadroxil [Cefadroxil] 1 gm PO Q12H 06/03/18 Furosemide [Lasix] 20 mg PO DAILY 06/03/18 Levothyroxine Sodium [Synthroid] 125 mcg PO DAILY 06/03/18 Lisinopril [Zestril] 5 mg PO DAILY 06/03/18 Melatonin 3 mg PO QHS 06/03/18 Multivitamin [Multiple Vitamins] 1 tab PO DAILY 06/03/18 Omeprazole 40 mg PO DAILY 06/03/18 Surgical History: - - Masctectomy, Thyroid Resection, Port. 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 Lives: With Family Smoking Status: Never smoker Tobacco Use: Non-smoker Alcohol: None Drugs: None - *Family History Maternal History Items: Unknown Paternal History Items: No pertinent history Review of Systems Constitutional: Reports: Anorexia, Malaise, Weakness, Fatigue. Denies: Chills, Fever, Weight Change HEENT: Denies: Head Aches, Sinus Congestion, Sinus Drainage Cardiovascular: Denies: Chest Pain, Palpitations Respiratory: Denies: Cough, Shortness of breath at rest, Sputum production Gastrointestinal: Reports: Diarrhea, Nausea, Vomiting. Denies: Abdominal Pain Genitourinary: Denies: Dysuria Musculoskeletal: Reports: Back Pain. Denies: Joint Pain, Joint Tenderness Skin: Denies: Rash, Wounds Neurological: Reports: Confusion. Denies: Focal weakness, Numbness, Tingling Psychiatric: Denies: Anxiety, Depression, Homicidal Ideations, Suicidal Ideations Hematologic/ Lymphatic: Reports: Anemia, Easy Bruising, Easy Bleeding VTE Information - Inpt Only VTE Present on Admission: No VTE Mechan Device Prophylaxis: SCD's VTE Pharm Prophylaxis ordered?: No Reason prophylaxis not ordered:: Medical Contraindication Subjective: Seated upright in the ED bed, fatigued appearance. Objective: Physical Examination: General: awake, alert to questioning, oriented to self, place, recent events but daughter noting she has confusion about some recent events, cooperative, seated upright in the ED bed, fatigued appearance. Skin: normal color, turgor, + icterus, cyanosis. HEENT: AT/NC, EOMI, PERRLA, dry MM, no carotid bruits or JVD noted, + scleral icterus. Lungs: Diminished BS BL, > bases, poor effort, no rales, ronchi or wheezing. Heart: Regular rate and rhythm; no gallop, rub audible. Abdomen: soft, NTTP, ND, notable improved ascites abd from prior presentation, normal BS, + HM. Extremities: no cyanosis, clubbing, BL ankle edema, non-pitting. Neurological: patient awake, alert, oriented as noted; cognitive function decreased from baseline; pupils equally reactive to light and accomodation; cranial nerves II-XII grossly normal, moving all 4 extremities, no focal deficits, strength severely globally decreased secondary to acute presentation. Psychiatric: affect appears fatigued, flat, no acute evidence of depressive or anxiety feelings. - Physical Exam Vital Signs Temp Pulse Resp BP Pulse Ox 97.5 F L 91 16 109/73 100 06/03/18 15:40 06/03/18 15:40 06/03/18 15:40 06/03/18 15:40 06/03/18 15:40 Oxygen Delivery Method Room Air Weight: 106 lb 7.732 oz Body Mass Index (BMI) 16.2 Laboratory Tests Past 24 Hrs 06/03/18 06/03/18 06/03/18 16:10 16:10 16:10 WBC 6.7 RBC 3.48 L Hgb 10.9 L Hct 32.9 L MCV 94.5 MCH 31.3 MCHC 33.1 RDW 21.6 H RDW Differential 73.9 H Plt Count 277 MPV 10.2 Immature Gran % (Auto) 0.300 Neut % (Auto) 70.0 Lymph % (Auto) 25.6 [place] % (Auto) 3.1 Eos % (Auto) 0.7 Baso % (Auto) 0.3 Absolute Neuts (auto) 4.7 Absolute Lymphs (auto) 1.71 Total Counted Pending PT 15.5 H INR 1.2 APTT 30.3 Sodium Pending Potassium Pending Chloride Pending Carbon Dioxide Pending Anion Gap Pending BUN Pending Creatinine Pending Est GFR (MDRD) Af Amer Pending Est GFR (MDRD) Non-Af Pending BUN/Creatinine Ratio Pending Glucose Pending Calcium Pending Total Bilirubin Pending Direct Bilirubin Pending AST Pending ALT Pending Alkaline Phosphatase Pending Ammonia Troponin I Pending Total Protein Pending Albumin Pending 06/03/18 16:10 WBC RBC Hgb Hct MCV MCH MCHC RDW RDW Differential Plt Count MPV Immature Gran % (Auto) Neut % (Auto) Lymph % (Auto) [place] % (Auto) Eos % (Auto) Baso % (Auto) Absolute Neuts (auto) Absolute Lymphs (auto) Total Counted PT INR APTT Sodium Potassium Chloride Carbon Dioxide Anion Gap BUN Creatinine Est GFR (MDRD) Af Amer Est GFR (MDRD) Non-Af BUN/Creatinine Ratio Glucose Calcium Total Bilirubin Direct Bilirubin AST ALT Alkaline Phosphatase Ammonia Pending Troponin I Total Protein Albumin Assessment/Plan All Active Problems Neutropenia (Acute) Acute cystitis (Acute) Fever (Acute) Drug rash (Acute) The patient is a 68 y/o F w/ PMHx: HTN, GERD, Hx Thyroid Nodule w/ Hypothyroidism, GERD, Metastatic Breast CA to Bone following w/ Dr. Barakat recently transitioned to new chemotherapeutic oral agent ~ 1 week prior with recent admission 05/05/18 w/ neutropenic fever secondary to acute E. Coli UTI w/ bacteremia and noted elevated LFTs, Bilirubin w/ abdominal ascites secondary to metastatic breast CA as well as CHUN who now re-presents to the [facility] ED on with history of starting chemotherapeutic new regimen with onset since fatigue, weakness, malaise, nausea with emesis with poor intake in addition to increased scleral icterus in addition to confusion x 2 days. (1) Acute Encephalopathy secondary to Elevated LFTs, Bilirubin w/ Recent Abdominal Ascites, Hyperammonia Improved from prior Suspected secondary to Metastatic Breast Cancer in addition to #2: ED work-up included T 97.5, HR 91, BP 109/73, RR 16, 100% on RA, CBC with WBC 6.7, hemoglobin 10.9, platelet 277 without shift, coags with PT 15.5 otherwise unremarkable, CMP with potassium 3.1 , BUN/Cr 73/3.85 (baseline Cr 0.7-0.8), total bilirubin 5, direct bilirubin 4.21 , AST/ALT 255/87, Alk phos 864, Ammonia 104, trop < 0.015. Recent 04/2018 CT A/P w/ multiple metastatic lesions in the liver with largest measuring 4 cm with moderate amount of free fluid in the abdomen and pelvis, multiple metastatic lesions in the lower thoracic spine, lumbar spine, sacrum and pelvic bones with pathological fractures in the upper endplate of T10, L1, L3. Will admit to [facility], maintain on IVFs given concurrent CHUN, continue lactulose, trend CMP and NH, repeat liver US as expecting worsening disease progress/metastatic progression, consult Oncologist Dr. Barakat, obtain mag and phos levels, fall precautions, PT and OT, CM consults for discharge planning. Holding nephrotoxic regimen as noted given severe CHUN. (2) Acute kidney injury: Secondary to poor oral intake, suspect hypovolemic, prerenal in addition to possible relation to new medications w/ worsening progressive metastatic breast CA. Admission BUN/Cr 73/3.85, prior baseline creatinine noted to be 0.7-0.8. Will hydrate, hold nephrotoxic medications and repeat chemistry in AM. If no improvement would plan FeNa assessment. (3) Metastatic breast cancer: Noted metastatic disease to lung, liver, bone as noted, per prior discussions Dr. Barakat had encouraged palliative/hospice considerations but patient and family resistant, currently transitioned to new agent BID. Will consult Dr. Barakat, obtain mag and phos levels and replete as needed. (4) Hypokalemia: Admission K+ 3.1, supplementation given, repeat level in AM. (5) Hypertension: Holding lisinopril, triamterene and hydrochlorthiazide given CHUN presentation, PRN hydralazine. (6) Hypothyroidism: Hx thyroid CA remotely s/p thyroidectomy. Continue home synthroid regimen. (7) Moderate to Severe Protein-Calorie Malnutrition: Evidenced per BMI, habitus , muscle and fat loss, nutrition consulted. (8) GERD: PPI. (9) DVT Prophylaxis: SCDs, given liver dysfunction although INR not elevated will defer chemoprophylaxis in case function worsens, may add if appropriate. (10) CODE status: Patient has living will in place. Daughter is HCPOA. Again, discussed CODE status at length including difference between FULL code, DNR-CCA and DNR-CC status. Following discussions about the differences in these status, requested Full Code status. Discussed likely poor outcome given her disease history and likely trauma to the body. Patient daughter amenable to concept of decreasing from Full Code status but patient remains Full Code per herself. Advanced Care Planning Face to Face Time: 17 minutes. Code Visit Inpatient E&M: 91384 Init Hosp L3 Procedures: 68660 Advncd Care Plan 30 Min
--- NOTE | 2018-06-03 17:35 | RAD_ITS ---
STUDY: X-RAY CHEST REASON FOR EXAM: Female, 68 years old. Cough and shortness of breath TECHNIQUE: PA and lateral COMPARISON: May 04, 2018 FINDINGS: Nonspecific elevation of the right hemidiaphragm possibly due to hepatomegaly.. Lungs are clear of acute infiltration.. There is no demonstrated pleural abnormality. Surgical clips in the right axilla. Mediport catheter on the left with tip in the right atrium. Normal size heart. Normal mediastinum and escobar. Normal visualized pulmonary arteries. Normal visualized aortic arch and descending thoracic aorta. Normal visualized thoracic spine. Normal visualized ribs, clavicles, and shoulders. There is no demonstrated abnormality of the visualized soft tissue structures of the upper abdomen. No significant change since prior exam RAD/Chest PA and Lateral IMPRESSION: No acute cardiopulmonary pathology. Electronically Signed: John Conrad MD at 18:46 EDT , Service support ,
[2018-06-03] MEDS: Lactulose 20 GM/30 ML UDC 30 GM PO (17:48)
[2018-06-03 17:55] VITALS: BP 108/71; PULSE 97; RESP 16; O2SAT 100
[2018-06-03 17:57] VITALS: BP 108/71; PULSE 96; RESP 16; O2SAT 100
[2018-06-03 18:09] LABS: Mucous, Urine 0 SEEN /hpf (<or=2+)
[2018-06-03 18:22] LABS: Color, Urine Amber (Yellow); Glucose, Dipstick Normal (Normal); Ketone-Dipstick 5 mg/dl (Negative); Leukocyte Esterase-Dipstick 500 /ul (Negative); Nitrite-Dipstick Negative (Negative); Occult Blood-Urine 25 /ul (Negative); Protein-Dipstick 30 mg/dl (Negative); Specific Gravity, Urine 1.015 (1.002-1.030); Urine Clarity Cloudy (Clear); Urine Urobilinogen 4 mg/dl (Normal)
[2018-06-03 18:27] LABS: Urine Bilirubin Dipstick 3 mg/dL (Negative)
--- NOTE | 2018-06-03 18:28 | US_ITS ---
STUDY: ABDOMINAL ULTRASOUND - RIGHT UPPER QUADRANT REASON FOR VISIT: Female, 68 years old. Elevated LFTs TECHNIQUE: Ultrasound evaluation of the right upper quadrant was performed with real-time and static causey-scale imaging. TECHNICAL QUALITY: Adequate. COMPARISON: None. FINDINGS: Liver: The liver measures 21.4 cm. There is heterogeneously increased echogenicity of the liver. With multinodular contour The bile ducts are within normal limits. There is hepatic color flow. The direction of portal flow is hepatopetal. There are multiple anechoic nodules chest the appearance of cysts Gallbladder: Normal appearing gallbladder is not appreciated which may be consistent with prior cholecystectomy or severely contracted state.. If concern for gallbladder disease HIDA scan would be helpful for further assessment Common Bile Duct (C.B.D.): The common bile duct measures 9 mm. Pancreas: Limited visualization of pancreas due to artifact. Right Kidney: Normal size of the right kidney. The right kidney measures 9.7 x 5.6 x 3.9 cm. Normal renal cortex. The right cortex measures 1.7 cm. There is no demonstrated renal mass or cyst. There is no right hydronephrosis. Moderate ascites is noted US/Liver IMPRESSION: Findings consistent with cirrhotic liver and ascites with multiple hepatic cysts. Nonvisualization of normal gallbladder consistent with severely contracted state or cholecystectomy. If concern for acute gallbladder disease HIDA scan recommended Electronically Signed: John Conrad MD at 20:03 EDT , Service support ,
--- NOTE | 2018-06-03 18:28 | US_ITS ---
STUDY: RENAL ULTRASOUND - COMPLETE REASON FOR EXAM: Female, 68 years old. Abnormal labs TECHNIQUE: Ultrasound evaluation of the kidneys was performed with real-time and static schaeffer-scale imaging. COMPARISON: None. FINDINGS: RIGHT KIDNEY: Normal location of the right kidney, which is normal in size. The right kidney measures 9.7 x 4.2 x 4.3 cm. There is a normal cortex of the right kidney. The renal cortex measures 1.6 cm. There is no right renal mass or cyst. There are no right renal calculi. There is no right hydronephrosis. DISTAL RIGHT URETER: There is non-visualization of the distal right ureter. There is no demonstrated right ureterovesical junction calculus. There is a visualized right ureteral jet. LEFT KIDNEY: Normal location of the left kidney, which is normal in size. The left kidney measures 10.6 x 4.6 x 4.1 cm. There is a normal cortex of the left kidney. The renal cortex measures 1.3 cm. There is no left renal mass or cyst. There are no left renal calculi. There is no left hydronephrosis. DISTAL LEFT URETER: There is non-visualization of the distal left ureter. There is no demonstrated left ureterovesical junction calculus. There is a visualized left ureteral jet. Diffusely increased cortical echoes bilaterally consistent with nonspecific renal parenchymal disease BLADDER: The distended urinary bladder has a volume of 115.87 ml. There is a normal wall thickness of the distended urinary bladder. There is no demonstrated mass within the urinary bladder. There are no demonstrated bladder calculi. US/Kidney and Bladder IMPRESSION: Findings which may be consistent with nonspecific renal parenchymal disease. No evidence for renal obstruction incidental finding of ascites Electronically Signed: John Conrad MD at 20:13 EDT , Service support ,
[2018-06-03 18:40] VITALS: BMI 18.3
[2018-06-03 18:51] LABS: Magnesium 2.9 mg/dL (1.6-2.6); Phosphorus 3.8 mg/dL (2.5-4.9)
[2018-06-03 18:52] VITALS: BMI 18.4
[2018-06-03 18:54] VITALS: BP 98/56; PULSE 99; RESP 20; TEMP 36.3; O2SAT 98
[2018-06-03 19:15] LABS: White Blood Cells >100 SEEN /hpf (0-5)
[2018-06-03 19:16] LABS: Bacteria 4+ /hpf (None Seen); Red Blood Cells-Urine 0-5 SEEN /hpf (0-5); Renal Epithelial Cells 0-5 SEEN /hpf (0-5); Squamous Epithelial Cells - UA 0-5 SEEN /hpf (5-10)
[2018-06-03] MEDS: 0.9% NaCl VAD Flush 10 ML IV (20:28)
[2018-06-03] MEDS: Ondansetron 4 MG/2 ML Vial IV (20:28)
[2018-06-03 22:05] LABS: Urine Sodium 23 mmol/L (Not Establ.)
[2018-06-03] MEDS: Pantoprazole Sodium 20 MG Tablet PO (23:08)
[2018-06-03] MEDS: MELATONIN 3 MG TABLET PO (23:08)
[2018-06-03] MEDS: Lactulose 20 GM/30 ML UDC PO (23:10)
[2018-06-03 23:17] VITALS: BP 111/67; PULSE 104; RESP 18; TEMP 37; O2SAT 100
[2018-06-04] MEDS: 0.9% Normal Saline 1,000 ML 125 ML IV ×2 (02:18→10:57)
[2018-06-04 04:53] VITALS: BP 106/65; PULSE 93; RESP 18; TEMP 36.9; O2SAT 99
[2018-06-04] MEDS: Levothyroxine 125 MCG Tablet PO (04:55)
[2018-06-04] MEDS: Lactulose 20 GM/30 ML UDC PO ×2 (04:55→10:56)
--- NOTE | 2018-06-04 05:43 | NURSING ---
On assessing pt, noted a flea on her pillow next to her head. Inspected patients hair and found multiple fleas throughout scalp and debris on pillow and throughout scalp. Enquired if pt knew there were fleas or if she has been having an itchy scalp. Pt did not know there were fleas in her scalp but stated her scalp had been itchy. Pt advised she had cats, dogs and birds at the house and that her cats and dogs did have fleas. Place patient in isolation, BILLBOARD POSTER changed linen and washed pt's hair with shampoo cap and combed hair obtaining a few more fleas. Advised charge nurse. Will handoff to morning staff that a discussion with family/Case Management would be helpful to see if the fleas in the home can be treated prior to patient's discharge.
[2018-06-04 06:10] LABS: Absolute Lymphocyte Count 1.41 X10^3/ul (0.83-4.51); Absolute Neutrophil Count 3.9 X10^3/uL (2.0-7.7); Basophil# 0.04 X10^3/uL; Basophil% 0.7 % (0-1); Eosinophil# 0.14 X10^3/uL; Eosinophils% 2.5 % (0-5); Hematocrit 30.7 % (37-47); Hemoglobin 10.6 g/dl (12.0-15.0); Lymphocyte # 1.41 X10^3/ul (4.0); Lymphocyte % 25.4 % (19-41); Mean Corp Hgb Conc 34.5 g/gl (32-36); Mean Corpuscular Hgb 32.5 pg (27.0-32.0); Mean Corpuscular Volume 94.2 fL (81-99); Monocyte# 0.11 X10^3/uL; Neutrophil # 3.85 X10^3/uL (2.7-7.7); Neutrophil % 69.2 % (47-70); Platelet Count 273 K/mm3 (150-450); RBC Distribution Width CV 22.4 % (11.6-14.6); RBC Distribution Width SD 73.4 fl (35.1-43.9); Red Blood Count 3.26 M/mm3 (4.2-5.4); White Blood Count 5.6 K/mm3 (4.4-11.0)
[2018-06-04 06:11] LABS: Differential Indicated SCAN CRITERIA MET; POSITIVE COUNT NO; POSITIVE DIFFERENTIAL NO; POSITIVE MORPHOLOGY YES
[2018-06-04 06:13] LABS: ALB/GLOB Ratio 0.4 RATIO (0.9-2.4); AST(SGOT) 269 U/L (15-37); Alanine Aminotransfer ALT/SGPT 95 U/L (13-56); Albumin, Serum 1.7 g/dL (3.2-5.0); Alkaline Phosphatase 782 U/L (45-117); Anion Gap 12 (5-15); BUN 67 mg/dL (7-18); BUN/Creat Ratio 18.2 RATIO (10-20); Calcium,Total 7.7 mg/dL (8.5-10.1); Chloride 110 mmol/L (98-107); Creatinine, Serum 3.69 mg/dL (0.55-1.02); EST Glomerular Filtration Rate 13 mL/min (>60); Est Glom Filt Rate - Afr Amer 16 mL/min (>60); Estimated Creatinine Clearance 10.64 ml/min; Glucose 90 mg/dL (74-106); Potassium 3.4 mmol/L (3.5-5.1); Protein, Total 5.7 g/dL (6.4-8.2); Sodium Level 146 mmol/L (136-145)
[2018-06-04 06:34] VITALS: O2SAT 96
[2018-06-04 06:38] LABS: Anisocytosis 1+; Differential Comment SCAN
[2018-06-04 06:39] LABS: Hypochromasia 1+; Microcytosis 1+
--- NOTE | 2018-06-04 08:33 | PCM.CONS.B ---
Problem List (1) Hepatic encephalopathy Status: Acute (2) Acute kidney injury Status: Acute (3) Metastatic breast cancer Status: Chronic - Consult Date of Consult: 06/04/18 - Reason for Consult Consultation requested by Dr. Stanley regarding a patient with metastatic breast cancer who presented with confusion, weakness, anorexia and elevated bilirubin. My final recommendation will be communicated to the nursing team and by electronic medical record History of Present Illness Date of Admission: 06/03/18 Chief Complaint: Weakness, Fatigue, N/V after start new treatment for metastatic breast cancer. The patient is a 68 y/o F w/ PMHx: HTN, GERD, Hx Thyroid CA w/ Hypothyroidism, GERD, Metastatic Breast CA to Bone and extensive liver metastasis. Patient was in the hospital last month for neutropenic fever, failure to thrive and increased ascites secondary to liver failure. CT scan confirmed that she has progression of disease. Started Abemaccib ~ 1 week prior with recent admission 05/05/18 w/ neutropenic fever secondary to acute E. Coli UTI w/ bacteremia and noted elevated LFTs, Bilirubin w/ abdominal ascites secondary to metastatic breast CA as well as CHUN. Patient present to [facility] ED on 06/03/18 with history of with onset since her treatment with fatigue, weakness, malaise, nausea with emesis with poor intake in addition to increased scleral icterus. Family notes also recently more confused. She lives alone at home with her pets (cats). Poor living environment according to her family. In the ED work-up included T 97.5, HR 91, BP 109/73, RR 16, 100% on RA, CBC with WBC 6.7, hemoglobin 10.9, platelet 277 without shift, coags with PT 15.5 otherwise unremarkable, CMP with potassium 3.1, BUN/Cr 73/3.85 (baseline Cr 0.7-0.8), total bilirubin 5, direct bilirubin 4.21, AST/ALT 255/87, Alk phos 864, Ammonia 104, trop < 0.015, UA ordered per ED but not yet obtained. In the ED patient administered NS, lactulose therapy. Today, she is still confused, alert and orientated ?1, denies shortness of breath or problem with urination. She had bilateral pedal edema with decreased urine output. + Moderate ascites, + asterixis, moderate jaundice, patient has anorexia, eatings only teaspoonful at a time. Past Medical History Past Medical History (Chronic Problems): Chronic Problems Ascites, malignant (Chronic) Hypothyroidism (Chronic) Breast cancer metastasized to bone & liver (Chronic) GERD (gastroesophageal reflux disease) (Chronic) Hypertension (Chronic) History of breast cancer (Chronic) Thyroid nodule (Chronic) Allergies iodine Allergy (Verified 06/03/18 15:44) Swelling PT AVOIDS IODINE DUE TO SHELLFISH ALLERGY poison cher extract [Poison Cher Extract] Allergy (Verified 06/03/18 15:44) Hives shellfish derived Allergy (Verified 06/03/18 15:44) Hives zolpidem [From Ambien] Adverse Reaction (Mild, Verified 06/03/18 15:44) Other Patient states she lists as allergy b/c she does not ever want to take Home Medications: Ambulatory Orders Medication Instructions Recorded DiphenhydrAMINE [Benadryl] 25 mg PO Q6H PRN PRN capsule 07/21/17 Triamterene 37.5MG/Hctz 25MG 1 tablet PO DAILY 05/05/18 [Maxzide 37.5 mg-25 mg Tablet] Abemaciclib [Verzenio] 200 mg PO BID 06/03/18 Cefadroxil [Cefadroxil] 1 gm PO Q12H 06/03/18 Furosemide [Lasix] 20 mg PO DAILY 06/03/18 Levothyroxine Sodium [Synthroid] 125 mcg PO DAILY 06/03/18 Lisinopril [Zestril] 5 mg PO DAILY 06/03/18 Melatonin 3 mg PO QHS 06/03/18 Multivitamin [Multiple Vitamins] 1 tab PO DAILY 06/03/18 Omeprazole 40 mg PO DAILY 06/03/18 Surgical History: - - Masctectomy, Thyroid Resection, Port. 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 Lives: With Family Smoking Status: Never smoker Tobacco Use: Non-smoker Alcohol: None Drugs: None - *Family History Maternal History Items: Unknown Paternal History Items: No pertinent history Review of Systems Constitutional: Reports: Anorexia, Malaise, Weakness, Fatigue. Denies: Chills, Fever, Weight Change HEENT: Denies: Head Aches, Sinus Congestion, Sinus Drainage Cardiovascular: Denies: Chest Pain, Palpitations Respiratory: Denies: Cough, Shortness of breath at rest, Sputum production Gastrointestinal: Reports: Diarrhea, Nausea, Vomiting. Denies: Abdominal Pain Genitourinary: Denies: Dysuria Musculoskeletal: Reports: Back Pain. Denies: Joint Pain, Joint Tenderness Skin: Denies: Rash, Wounds Neurological: Reports: Confusion. Denies: Focal weakness, Numbness, Tingling Psychiatric: Denies: Anxiety, Depression, Homicidal Ideations, Suicidal Ideations Hematologic/ Lymphatic: Reports: Anemia, Easy Bruising, Easy Bleeding Objective: Physical Examination: General: awake, alert to questioning, oriented to self, place-only, + cachexia Skin: normal color, turgor, + icterus, cyanosis. HEENT: AT/NC, EOMI, PERRLA, dry MM, no carotid bruits or JVD noted, + scleral icterus. + Temporal wasting Lungs: Diminished BS BL, > bases, poor effort, no rales, ronchi or wheezing. Heart: Regular rate and rhythm; no gallop, rub audible. Abdomen: soft, NTTP, ND, notable improved + ascites abd from prior presentation, normal BS, + HM. Extremities: no cyanosis, clubbing, BL + trace ankle edema, non-pitting. Neurological: patient awake, alert, oriented as noted; cognitive function decreased from baseline; pupils equally reactive to light and accomodation; cranial nerves II-XII grossly normal, moving all 4 extremities, no focal deficits, strength severely globally decreased secondary to acute presentation. Psychiatric: affect appears fatigued, flat, no acute evidence of depressive or anxiety feelings. - Physical Exam Vital Signs Temp Pulse Resp BP Pulse Ox 97.5 F L 91 16 109/73 100 06/03/18 15:40 06/03/18 15:40 06/03/18 15:40 06/03/18 15:40 06/03/18 15:40 Oxygen Delivery Method Room Air Weight: 106 lb 7.732 oz Body Mass Index (BMI) 16.2 Intake and Output for Last 24 Hours 06/02/18 06/03/18 06/04/18 23:59 23:59 23:59 Intake Total 240 / 240 1776 / 1776 Output Total 50 / 50 Balance 190 / 190 1776 / 1776 Laboratory Results 06/03/18 16:10: WBC 6.7, RBC 3.48 L, Hgb 10.9 L, Hct 32.9 L, MCV 94.5, MCH 31.3, MCHC 33.1, RDW 21.6 H, RDW Differential 73.9 H, Plt Count 277, MPV 10.2, Immature Gran % (Auto) 0.300, Neut % (Auto) 70.0, Lymph % (Auto) 25.6, [place] % (Auto) 3.1, Eos % (Auto) 0.7, Baso % (Auto) 0.3, Absolute Neuts (auto) 4.7, Absolute Lymphs (auto) 1.71, Total Counted Not Reportable, Differential Comment 06/03/18 16:10: PT 15.5 H, INR 1.2, APTT 30.3 06/03/18 16:10: Sodium 143, Potassium 3.1 L, Chloride 106, Carbon Dioxide 24.0, Anion Gap 13, BUN 73 H, Creatinine 3.85 H, Estim Creat Clear Calc 10.81, Est GFR (MDRD) Af Amer 15 L, Est GFR (MDRD) Non-Af 12 L, BUN/Creatinine Ratio 19.0, Glucose 90, Calcium 7.7 L, Total Bilirubin 5.00 H, Direct Bilirubin 4.21 H, AST 255 H, ALT 87 H, Alkaline Phosphatase 864 H, Troponin I < 0.015, Total Protein 5.8 L, Albumin 1.7 L, Globulin 4.1 06/03/18 16:10: Ammonia 104.0 H 06/03/18 16:10: Phosphorus 3.8, Magnesium 2.9 H 06/03/18 17:55: Urine Color Dania, Urine Clarity Cloudy, Urine pH 5.0, Ur Specific [place] 1.015, Urine Protein 30 H, Urine Glucose (UA) Normal, Urine Ketones 5 H, Urine Occult Blood 25 H, Urine Nitrite Negative, Urine Bilirubin 3 H, Urine Urobilinogen 4 H, Ur Leukocyte Esterase 500 H, Urine RBC 0-5 SEEN, Urine WBC >100 SEEN, Ur Squamous Epith Cells 0-5 SEEN, Ur Renal Epithelial Cell 0-5 SEEN, Urine Bacteria 4+, Urine Mucus 0 SEEN 06/03/18 17:55: Urine Creatinine 112.00 06/03/18 17:55: Ur Random Sodium 23 06/04/18 05:20: Ammonia 76.0 H 06/04/18 05:20: WBC 5.6, RBC 3.26 L, Hgb 10.6 L, Hct 30.7 L, MCV 94.2, MCH 32.5 H, MCHC 34.5, RDW 22.4 H, RDW Differential 73.4 H, Plt Count 273, MPV 11.0, Immature Gran % (Auto) 0.200, Neut % (Auto) 69.2, Lymph % (Auto) 25.4, [place] % (Auto) 2.0, Eos % (Auto) 2.5, Baso % (Auto) 0.7, Absolute Neuts (auto) 3.9, Absolute Lymphs (auto) 1.41, Total Counted Not Reportable, Differential Comment SCAN, Hypochromasia 1+, Anisocytosis 1+, Microcytosis 1+ 06/04/18 05:20: Sodium 146 H, Potassium 3.4 L, Chloride 110 H, Carbon Dioxide 24.0, Anion Gap 12, BUN 67 H, Creatinine 3.69 H, Estim Creat Clear Calc 10.64, Est GFR (MDRD) Af Amer 16 L, Est GFR (MDRD) Non-Af 13 L, BUN/Creatinine Ratio 18.2, Glucose 90, Calcium 7.7 L, Total Bilirubin 5.10 H, AST 269 H, ALT 95 H, Alkaline Phosphatase 782 H, Total Protein 5.7 L, Albumin 1.7 L, Globulin 4.0, Albumin/Globulin Ratio 0.4 L Performance status; 50%, palliative performance index score = 3.5, eating spoonful = 1.0, delirium = 2.5 edema = 1.0 total score = 8.0 Median prognosis = 7 -12 days Assessment/Plan All Active Problems Mrs. Frias is a 68-year-old female with metastatic breast cancer to liver, bone and lungs who has failed multiple lines of chemotherapy and endocrine therapy. Despite treatment with Abemcicb, patient has been progression of disease with liver failure and hepatic encephalopathy & acute renal failure. Based on her performance status, multiorgan failures, and her palliative performance index, Mrs. Frias has a grave prognosis with median survival less than 1 week. Family is very concerned about her living situations and wishes to proceed with inpatient hospice management. Plan: -Discontinue all her medication except for supportive care -Continue lactulose, Lasix and spironolactone as needed. -Discussed with family regarding her condition and prognosis. Her daughters (DPOA) agreed to proceed with inpatient hospice and DNR-comfort care. cc: Dr. Chelsy Stanley, Dr. Betzaida Barakat; Dr. Sylvester Brown, [facility]
--- NOTE | 2018-06-04 08:55 | CON.PCM_ITS ---
Problem List (1) Hepatic encephalopathy Status: Acute (2) Acute kidney injury Status: Acute (3) Metastatic breast cancer Status: Chronic - Consult Date of Consult: 06/04/18 - Reason for Consult Consultation requested by Dr. Stanley regarding a patient with metastatic breast cancer who presented with confusion, weakness, anorexia and elevated bilirubin. My final recommendation will be communicated to the nursing team and by electronic medical record History of Present Illness Date of Admission: 06/03/18 Chief Complaint: Weakness, Fatigue, N/V after start new treatment for metastatic breast cancer. The patient is a 68 y/o F w/ PMHx: HTN, GERD, Hx Thyroid CA w/ Hypothyroidism, GERD, Metastatic Breast CA to Bone and extensive liver metastasis. Patient was in the hospital last month for neutropenic fever, failure to thrive and increased ascites secondary to liver failure. CT scan confirmed that she has progression of disease. Started Abemaccib ~ 1 week prior with recent admission 05/05/18 w/ neutropenic fever secondary to acute E. Coli UTI w/ bacteremia and noted elevated LFTs, Bilirubin w/ abdominal ascites secondary to metastatic breast CA as well as CHUN. Patient present to [facility] ED on 06/03/18 with history of with onset since her treatment with fatigue, weakness, malaise, nausea with emesis with poor intake in addition to increased scleral icterus. Family notes also recently more confused. She lives alone at home with her pets (cats). Poor living environment according to her family. In the ED work-up included T 97.5, HR 91, BP 109/73, RR 16, 100% on RA, CBC with WBC 6.7, hemoglobin 10.9, platelet 277 without shift, coags with PT 15.5 otherwise unremarkable, CMP with potassium 3.1, BUN/Cr 73/3.85 (baseline Cr 0.7-0.8), total bilirubin 5, direct bilirubin 4.21, AST/ALT 255/87, Alk phos 864, Ammonia 104, trop < 0.015, UA ordered per ED but not yet obtained. In the ED patient administered NS, lactulose therapy. Today, she is still confused, alert and orientated ?1, denies shortness of breath or problem with urination. She had bilateral pedal edema with decreased urine output. + Moderate ascites, + asterixis, moderate jaundice, patient has anorexia, eatings only teaspoonful at a time. Past Medical History Past Medical History (Chronic Problems): Chronic Problems Ascites, malignant (Chronic) Hypothyroidism (Chronic) Breast cancer metastasized to bone & liver (Chronic) GERD (gastroesophageal reflux disease) (Chronic) Hypertension (Chronic) History of breast cancer (Chronic) Thyroid nodule (Chronic) Allergies iodine Allergy (Verified 06/03/18 15:44) Swelling PT AVOIDS IODINE DUE TO SHELLFISH ALLERGY poison cher extract [Poison Cher Extract] Allergy (Verified 06/03/18 15:44) Hives shellfish derived Allergy (Verified 06/03/18 15:44) Hives zolpidem [From Ambien] Adverse Reaction (Mild, Verified 06/03/18 15:44) Other Patient states she lists as allergy b/c she does not ever want to take Home Medications: Ambulatory Orders Medication Instructions Recorded DiphenhydrAMINE [Benadryl] 25 mg PO Q6H PRN PRN capsule 07/21/17 Triamterene 37.5MG/Hctz 25MG 1 tablet PO DAILY 05/05/18 [Maxzide 37.5 mg-25 mg Tablet] Abemaciclib [Verzenio] 200 mg PO BID 06/03/18 Cefadroxil [Cefadroxil] 1 gm PO Q12H 06/03/18 Furosemide [Lasix] 20 mg PO DAILY 06/03/18 Levothyroxine Sodium [Synthroid] 125 mcg PO DAILY 06/03/18 Lisinopril [Zestril] 5 mg PO DAILY 06/03/18 Melatonin 3 mg PO QHS 06/03/18 Multivitamin [Multiple Vitamins] 1 tab PO DAILY 06/03/18 Omeprazole 40 mg PO DAILY 06/03/18 Surgical History: - - Masctectomy, Thyroid Resection, Port. 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 Lives: With Family Smoking Status: Never smoker Tobacco Use: Non-smoker Alcohol: None Drugs: None - *Family History Maternal History Items: Unknown Paternal History Items: No pertinent history Review of Systems Constitutional: Reports: Anorexia, Malaise, Weakness, Fatigue. Denies: Chills, Fever, Weight Change HEENT: Denies: Head Aches, Sinus Congestion, Sinus Drainage Cardiovascular: Denies: Chest Pain, Palpitations Respiratory: Denies: Cough, Shortness of breath at rest, Sputum production Gastrointestinal: Reports: Diarrhea, Nausea, Vomiting. Denies: Abdominal Pain Genitourinary: Denies: Dysuria Musculoskeletal: Reports: Back Pain. Denies: Joint Pain, Joint Tenderness Skin: Denies: Rash, Wounds Neurological: Reports: Confusion. Denies: Focal weakness, Numbness, Tingling Psychiatric: Denies: Anxiety, Depression, Homicidal Ideations, Suicidal Ideations Hematologic/ Lymphatic: Reports: Anemia, Easy Bruising, Easy Bleeding Objective: Physical Examination: General: awake, alert to questioning, oriented to self, place-only, + cachexia Skin: normal color, turgor, + icterus, cyanosis. HEENT: AT/NC, EOMI, PERRLA, dry MM, no carotid bruits or JVD noted, + scleral icterus. + Temporal wasting Lungs: Diminished BS BL, > bases, poor effort, no rales, ronchi or wheezing. Heart: Regular rate and rhythm; no gallop, rub audible. Abdomen: soft, NTTP, ND, notable improved + ascites abd from prior presentation , normal BS, + HM. Extremities: no cyanosis, clubbing, BL + trace ankle edema, non-pitting. Neurological: patient awake, alert, oriented as noted; cognitive function decreased from baseline; pupils equally reactive to light and accomodation; cranial nerves II-XII grossly normal, moving all 4 extremities, no focal deficits, strength severely globally decreased secondary to acute presentation. Psychiatric: affect appears fatigued, flat, no acute evidence of depressive or anxiety feelings. - Physical Exam Vital Signs Temp Pulse Resp BP Pulse Ox 97.5 F L 91 16 109/73 100 06/03/18 15:40 06/03/18 15:40 06/03/18 15:40 06/03/18 15:40 06/03/18 15:40 Oxygen Delivery Method Room Air Weight: 106 lb 7.732 oz Body Mass Index (BMI) 16.2 Intake and Output for Last 24 Hours 06/02/18 06/03/18 06/04/18 23:59 23:59 23:59 Intake Total 240 / 240 1776 / 1776 Output Total 50 / 50 Balance 190 / 190 1776 / 1776 Laboratory Results 06/03/18 16:10: WBC 6.7, RBC 3.48 L, Hgb 10.9 L, Hct 32.9 L, MCV 94.5, MCH 31.3 , MCHC 33.1, RDW 21.6 H, RDW Differential 73.9 H, Plt Count 277, MPV 10.2, Immature Gran % (Auto) 0.300, Neut % (Auto) 70.0, Lymph % (Auto) 25.6, [place] % ( Auto) 3.1, Eos % (Auto) 0.7, Baso % (Auto) 0.3, Absolute Neuts (auto) 4.7, Absolute Lymphs (auto) 1.71, Total Counted Not Reportable, Differential Comment 06/03/18 16:10: PT 15.5 H, INR 1.2, APTT 30.3 06/03/18 16:10: Sodium 143, Potassium 3.1 L, Chloride 106, Carbon Dioxide 24.0, Anion Gap 13, BUN 73 H, Creatinine 3.85 H, Estim Creat Clear Calc 10.81, Est GFR (MDRD) Af Amer 15 L, Est GFR (MDRD) Non-Af 12 L, BUN/Creatinine Ratio 19.0, Glucose 90, Calcium 7.7 L, Total Bilirubin 5.00 H, Direct Bilirubin 4.21 H, AST 255 H, ALT 87 H, Alkaline Phosphatase 864 H, Troponin I < 0.015, Total Protein 5.8 L, Albumin 1.7 L, Globulin 4.1 06/03/18 16:10: Ammonia 104.0 H 06/03/18 16:10: Phosphorus 3.8, Magnesium 2.9 H 06/03/18 17:55: Urine Color Dania, Urine Clarity Cloudy, Urine pH 5.0, Ur Specific [place] 1.015, Urine Protein 30 H, Urine Glucose (UA) Normal, Urine Ketones 5 H, Urine Occult Blood 25 H, Urine Nitrite Negative, Urine Bilirubin 3 H, Urine Urobilinogen 4 H, Ur Leukocyte Esterase 500 H, Urine RBC 0-5 SEEN, Urine WBC >100 SEEN, Ur Squamous Epith Cells 0-5 SEEN, Ur Renal Epithelial Cell 0-5 SEEN, Urine Bacteria 4+, Urine Mucus 0 SEEN 06/03/18 17:55: Urine Creatinine 112.00 06/03/18 17:55: Ur Random Sodium 23 06/04/18 05:20: Ammonia 76.0 H 06/04/18 05:20: WBC 5.6, RBC 3.26 L, Hgb 10.6 L, Hct 30.7 L, MCV 94.2, MCH 32.5 H, MCHC 34.5, RDW 22.4 H, RDW Differential 73.4 H, Plt Count 273, MPV 11.0, Immature Gran % (Auto) 0.200, Neut % (Auto) 69.2, Lymph % (Auto) 25.4, [place] % ( Auto) 2.0, Eos % (Auto) 2.5, Baso % (Auto) 0.7, Absolute Neuts (auto) 3.9, Absolute Lymphs (auto) 1.41, Total Counted Not Reportable, Differential Comment SCAN, Hypochromasia 1+, Anisocytosis 1+, Microcytosis 1+ 06/04/18 05:20: Sodium 146 H, Potassium 3.4 L, Chloride 110 H, Carbon Dioxide 24.0, Anion Gap 12, BUN 67 H, Creatinine 3.69 H, Estim Creat Clear Calc 10.64, Est GFR (MDRD) Af Amer 16 L, Est GFR (MDRD) Non-Af 13 L, BUN/Creatinine Ratio 18.2, Glucose 90, Calcium 7.7 L, Total Bilirubin 5.10 H, AST 269 H, ALT 95 H, Alkaline Phosphatase 782 H, Total Protein 5.7 L, Albumin 1.7 L, Globulin 4.0, Albumin/Globulin Ratio 0.4 L Performance status; 50%, palliative performance index score = 3.5, eating spoonful = 1.0, delirium = 2.5 edema = 1.0 total score = 8.0 Median prognosis = 7 -12 days Assessment/Plan All Active Problems Mrs. Frias is a 68-year-old female with metastatic breast cancer to liver, bone and lungs who has failed multiple lines of chemotherapy and endocrine therapy. Despite treatment with Abemcicb, patient has been progression of disease with liver failure and hepatic encephalopathy & acute renal failure. Based on her performance status, multiorgan failures, and her palliative performance index, Mrs. Frias has a grave prognosis with median survival less than 1 week. Family is very concerned about her living situations and wishes to proceed with inpatient hospice management. Plan: -Discontinue all her medication except for supportive care -Continue lactulose, Lasix and spironolactone as needed. -Discussed with family regarding her condition and prognosis. Her daughters ( DPOA) agreed to proceed with inpatient hospice and DNR-comfort care. cc: Dr. Chelsy Stanley, Dr. Betzaida Barakat; Dr. Sylvester Brown, [facility]
--- NOTE | 2018-06-04 09:30 | CASEMGMT ---
RN TIM READMISSION NOTE: D/C PLAN: To be determined. Probable In-pt hospice. Pt admitted to [facility] 05/05/18 w/ Dx Neutropenic fever and UTI w/Hx of Metastatic Breast CA, Abdominal Ascites suspected secondary to Metastatic Breast Ca, and CHUN. Discharged to Home on 05/07/18 w/support of daughters. Re-admitted 06/03/18 d/t Increased weakness w/dx of Encephalopathy, Metastatic Breast CA, Liver Failure, and CHUN. Intro role to RN TIM. Pt resting in bed. Awake/alert. Pt states has been living at home alone and has been independent until about a day prior to re-admission. States she had just went to her daughters house ([place]) d/t the increased weakness. Pt reports she has no DME at home. Pt states Dr Barakat has spoken with her about option of Hospice and she states is agreeable to talk with them. Per Dr Barakat Consultation note, family is very concerned about pt's living situations and wishes to proceed with inpatient hospice management. Dr Barakat also reports grave prognosis with median survival less than 1 week. Hospice referral has been made and plans are for them to come talk with pt and family today. CM to continue to follow for any discharge planning needs that may arise. Pricila GERBER RN, CM
[2018-06-04 09:45] VITALS: BP 93/59; PULSE 98; RESP 18; TEMP 36.6; O2SAT 100
[2018-06-04] MEDS: Pantoprazole Sodium 20 MG Tablet PO (10:55)
[2018-06-04] MEDS: 0.9% NaCl VAD Flush 10 ML IV (12:05)
[2018-06-04] MEDS: proMETHazine 25 MG/ML Syringe 12.5 MG IV (12:05)
--- NOTE | 2018-06-04 12:33 | PCM.TXEXTCAR ---
- Diet 06/03/18 17:29 Diet: Clear Liquid Food consistency:: N/A - Liquid only Liquid Consistency:: Regular/Thin - Routine Orders/Code Status Enema Type: Fleetz Enema Frequency: Daily PRN Suppository Type: Dulcolax 10mg Suppository Frequency: Daily PRN O2 Frequency: PRN Keep PO Greater than or Equal to (%): 92 Code Status: DNC-A - Wound(s) right upper ear Wound Type: Pressure Injury - Therapies Weight Bearing: Weight bearing as tolerated - Allergies/Procedures Done in Hospital Allergies/Adverse Reactions: Allergies iodine Allergy (Verified 06/03/18 15:44) Swelling PT AVOIDS IODINE DUE TO SHELLFISH ALLERGY poison cher extract [Poison Cher Extract] Allergy (Verified 06/03/18 15:44) Hives shellfish derived Allergy (Verified 06/03/18 15:44) Hives zolpidem [From Ambien] Adverse Reaction (Mild, Verified 06/03/18 15:44) Other Patient states she lists as allergy b/c she does not ever want to take - Type of Care/Length of Stay Estimated LOS: Convalescent Care Less Than 30 days Type of Care Needed: Inpt Hospice Facility Rehab Potential: Poor Prognosis: Poor - Additional Orders/Day of Discharge H&P will serve as current which was dated: 06/03/18 Day of Discharge: 06/04/18 - Follow Up Care Primary Care Physician: Care Physician,No Primary [NON-STAFF] -
--- NOTE | 2018-06-04 12:37 | PCM.DC.SUM ---
Discharge Date and Diagnosis - Problem List Patient Problems: Active and Suspected Problems Hepatic encephalopathy (Acute) Acute kidney injury (Acute) Hyperbilirubinemia (Acute) Date of Admission: 06/03/18 Date of Discharge: 06/04/18 - Primary Discharge Diagnosis Active and Suspected Problems Hepatic encephalopathy (Acute) Acute kidney injury (Acute) Hyperbilirubinemia (Acute) - Secondary Discharge Diagnosis Chronic Problems Ascites, malignant (Chronic) Hypothyroidism (Chronic) Metastatic breast cancer (Chronic) Breast cancer metastasized to bone (Chronic) GERD (gastroesophageal reflux disease) (Chronic) Hypertension (Chronic) History of breast cancer (Chronic) Thyroid nodule (Chronic) Hospital Course and Treatment Imaging Results: Diagnostic Data Chest X-Ray 06/03/18 17:35 IMPRESSION: No acute cardiopulmonary pathology. Electronically Signed: John Conrad MD at 18:46 EDT , Service support , Liver Ultrasound 06/03/18 18:28 IMPRESSION: Findings consistent with cirrhotic liver and ascites with multiple hepatic cysts. Nonvisualization of normal gallbladder consistent with severely contracted state or cholecystectomy. If concern for acute gallbladder disease HIDA scan recommended Electronically Signed: John Conrad MD at 20:03 EDT , Service support , Renal Ultrasound 06/03/18 18:28 IMPRESSION: Findings which may be consistent with nonspecific renal parenchymal disease. No evidence for renal obstruction incidental finding of ascites Electronically Signed: John Conrad MD at 20:13 EDT , Service support , Laboratory Tests 06/03/18 06/03/18 06/03/18 16:10 16:10 16:10 WBC 6.7 RBC 3.48 L Hgb 10.9 L Hct 32.9 L MCV 94.5 MCH 31.3 MCHC 33.1 RDW 21.6 H RDW Differential 73.9 H Plt Count 277 MPV 10.2 Immature Gran % (Auto) 0.300 Neut % (Auto) 70.0 Lymph % (Auto) 25.6 Placer % (Auto) 3.1 Eos % (Auto) 0.7 Baso % (Auto) 0.3 Absolute Neuts (auto) 4.7 Absolute Lymphs (auto) 1.71 Total Counted Not Reportable Differential Comment Hypochromasia Anisocytosis Microcytosis PT 15.5 H INR 1.2 APTT 30.3 Sodium 143 Potassium 3.1 L Chloride 106 Carbon Dioxide 24.0 Anion Gap 13 BUN 73 H Creatinine 3.85 H Estim Creat Clear Calc 10.81 Est GFR (MDRD) Af Amer 15 L Est GFR (MDRD) Non-Af 12 L BUN/Creatinine Ratio 19.0 Glucose 90 Calcium 7.7 L Phosphorus Magnesium Total Bilirubin 5.00 H Direct Bilirubin 4.21 H AST 255 H ALT 87 H Alkaline Phosphatase 864 H Ammonia Troponin I < 0.015 Total Protein 5.8 L Albumin 1.7 L Globulin 4.1 Albumin/Globulin Ratio Urine Color Urine Clarity Urine pH Ur Specific [place] Urine Protein Urine Glucose (UA) Urine Ketones Urine Occult Blood Urine Nitrite Urine Bilirubin Urine Urobilinogen Ur Leukocyte Esterase Urine RBC Urine WBC Ur Squamous Epith Cells Ur Renal Epithelial Cell Urine Bacteria Urine Mucus Ur Random Sodium Urine Creatinine 06/03/18 06/03/18 06/03/18 16:10 16:10 17:55 WBC RBC Hgb Hct MCV MCH MCHC RDW RDW Differential Plt Count MPV Immature Gran % (Auto) Neut % (Auto) Lymph % (Auto) Placer % (Auto) Eos % (Auto) Baso % (Auto) Absolute Neuts (auto) Absolute Lymphs (auto) Total Counted Differential Comment Hypochromasia Anisocytosis Microcytosis PT INR APTT Sodium Potassium Chloride Carbon Dioxide Anion Gap BUN Creatinine Estim Creat Clear Calc Est GFR (MDRD) Af Amer Est GFR (MDRD) Non-Af BUN/Creatinine Ratio Glucose Calcium Phosphorus 3.8 Magnesium 2.9 H Total Bilirubin Direct Bilirubin AST ALT Alkaline Phosphatase Ammonia 104.0 H Troponin I Total Protein Albumin Globulin Albumin/Globulin Ratio Urine Color Dania Urine Clarity Cloudy Urine pH 5.0 Ur Specific [place] 1.015 Urine Protein 30 H Urine Glucose (UA) Normal Urine Ketones 5 H Urine Occult Blood 25 H Urine Nitrite Negative Urine Bilirubin 3 H Urine Urobilinogen 4 H Ur Leukocyte Esterase 500 H Urine RBC 0-5 SEEN Urine WBC >100 SEEN Ur Squamous Epith Cells 0-5 SEEN Ur Renal Epithelial Cell 0-5 SEEN Urine Bacteria 4+ Urine Mucus 0 SEEN Ur Random Sodium Urine Creatinine 06/03/18 06/03/18 06/04/18 17:55 17:55 05:20 WBC RBC Hgb Hct MCV MCH MCHC RDW RDW Differential Plt Count MPV Immature Gran % (Auto) Neut % (Auto) Lymph % (Auto) Placer % (Auto) Eos % (Auto) Baso % (Auto) Absolute Neuts (auto) Absolute Lymphs (auto) Total Counted Differential Comment Hypochromasia Anisocytosis Microcytosis PT INR APTT Sodium Potassium Chloride Carbon Dioxide Anion Gap BUN Creatinine Estim Creat Clear Calc Est GFR (MDRD) Af Amer Est GFR (MDRD) Non-Af BUN/Creatinine Ratio Glucose Calcium Phosphorus Magnesium Total Bilirubin Direct Bilirubin AST ALT Alkaline Phosphatase Ammonia 76.0 H Troponin I Total Protein Albumin Globulin Albumin/Globulin Ratio Urine Color Urine Clarity Urine pH Ur Specific [place] Urine Protein Urine Glucose (UA) Urine Ketones Urine Occult Blood Urine Nitrite Urine Bilirubin Urine Urobilinogen Ur Leukocyte Esterase Urine RBC Urine WBC Ur Squamous Epith Cells Ur Renal Epithelial Cell Urine Bacteria Urine Mucus Ur Random Sodium 23 Urine Creatinine 112.00 06/04/18 06/04/18 05:20 05:20 WBC 5.6 RBC 3.26 L Hgb 10.6 L Hct 30.7 L MCV 94.2 MCH 32.5 H MCHC 34.5 RDW 22.4 H RDW Differential 73.4 H Plt Count 273 MPV 11.0 Immature Gran % (Auto) 0.200 Neut % (Auto) 69.2 Lymph % (Auto) 25.4 Placer % (Auto) 2.0 Eos % (Auto) 2.5 Baso % (Auto) 0.7 Absolute Neuts (auto) 3.9 Absolute Lymphs (auto) 1.41 Total Counted Not Reportable Differential Comment SCAN Hypochromasia 1+ Anisocytosis 1+ Microcytosis 1+ PT INR APTT Sodium 146 H Potassium 3.4 L Chloride 110 H Carbon Dioxide 24.0 Anion Gap 12 BUN 67 H Creatinine 3.69 H Estim Creat Clear Calc 10.64 Est GFR (MDRD) Af Amer 16 L Est GFR (MDRD) Non-Af 13 L BUN/Creatinine Ratio 18.2 Glucose 90 Calcium 7.7 L Phosphorus Magnesium Total Bilirubin 5.10 H Direct Bilirubin AST 269 H ALT 95 H Alkaline Phosphatase 782 H Ammonia Troponin I Total Protein 5.7 L Albumin 1.7 L Globulin 4.0 Albumin/Globulin Ratio 0.4 L Urine Color Urine Clarity Urine pH Ur Specific [place] Urine Protein Urine Glucose (UA) Urine Ketones Urine Occult Blood Urine Nitrite Urine Bilirubin Urine Urobilinogen Ur Leukocyte Esterase Urine RBC Urine WBC Ur Squamous Epith Cells Ur Renal Epithelial Cell Urine Bacteria Urine Mucus Ur Random Sodium Urine Creatinine oncology Operations: None, - - Total thyroidectomy Procedures: None Summary of Care Provided: The patient is a 68 year old F with a history of metastatic breast cancer which spread to the bone and the liver, hypothyroidism, hypertension, malignant ascites due to metastatic cancer and GERD. She was admitted with a complaint of fatigue, weakness, malaise, nausea and emesis as well as decreased intake of the started a new chemotherapeutic regimen. She was admitted and managed for acute hepatic encephalopathy due to metastatic breast cancer and malignant ascites, as well as acute kidney injury and hypokalemia. She was started on IV fluids and lactulose. Ammonia level was elevated at 104. Liver enzymes were also elevated. Oncology was consulted, and per their documentation, patient has failed multiple lines of chemotherapy and endocrine therapy and has had progression of disease with liver failure and acute hepatic encephalopathy and acute renal failure. Based on her performance status, multiorgan failure and palliative performance index, she has a very grave prognosis with median survival less than 1 week. Hospice consult was therefore placed and patient and family agreed that she be transferred to an inpatient hospice facility. Patient was discharged on an inpatient hospice facility on 06/04/2018. Patient was seen and examined before discharge. She looked very weak and frail and admitted to feeling lethargic. She denied any fever or chills, any cough or chest pain, any shortness of breath, abdominal pain, any diarrhea or vomiting. 12 point review of systems otherwise negative. Labs and vitals reviewed. On examination: Vital Signs Height 5 ft 2 in Weight: 100 lb 6.4 oz Weight in Pounds 100.4 lbs Pulse Ox 100 Temperature 97.8 F Pulse Rate 98 Respiratory Rate 18 Blood Pressure 93/59 Blood Pressure Position Semi-Fowlers []Physical Examination: General: awake, alert and oriented x 3. looks very cachectic and lethargic. HEENT: icteric sclera, PERRLA, EOMI, dry mucosa Skin:very pale, icteric Lungs: diminished brath sounds in all lung meadows. No crackles or wheezing auscultated. Heart: Regular rate and rhythm; no gallop, rub audible. Abdomen: soft, non tender, mild distension, positive fluid thrill. no palpable organomegaly. Extremities: no cyanosis, clubbing, BL ankle edema, non-pitting. Neurological: patient awake, alert, oriented x 3. CN II-XII grossly intact, MSK: cachectic Extremities; no tenderness or swelling SKin: jaundiced,no rash. Chemotherapy port in right side of chest Psychiatric; appropriate affect, calm Plan as stated above. Son is to discharge patient to inpatient hospice facility. Discharge Diet: No Restrictions Home Medications: Medications to take at Discharge DiphenhydrAMINE [Benadryl] 25 mg PO Q6H PRN PRN capsule 07/21/17 Triamterene 37.5MG/Hctz 25MG [Maxzide 37.5 mg-25 mg Tablet] 1 tablet PO DAILY 05/05/18 Abemaciclib [Verzenio] 200 mg PO BID 06/03/18 Cefadroxil 1 gm PO Q12H 06/03/18 Furosemide [Lasix] 20 mg PO DAILY 06/03/18 Levothyroxine Sodium [Synthroid] 125 mcg PO DAILY 06/03/18 Lisinopril [Zestril] 5 mg PO DAILY 06/03/18 Melatonin 3 mg PO QHS 06/03/18 Multivitamin [Multiple Vitamins] 1 tab PO DAILY 06/03/18 Omeprazole 40 mg PO DAILY 06/03/18 Primary Care Physician: Care Physician,No Primary [NON-STAFF] - Disposition: Hospice Medical Facility Minutes spent on discharge:: 40 Patient Condition:: Poor Medical Necessity - Tobacco Use Smoking Status: Never smoker Tobacco Use: Non-smoker Meaningful Use Info Meaningful Use Diagnoses (Choose all that apply): None applicable Code Visit Inpatient E&M: 59004 Disch Hosp
--- NOTE | 2018-06-04 13:30 | CHAPLAIN ---
Type of Pastoral Visit _x__ Initial Visit ___ Follow-up Visit ___ On-call Visit ___ General Patient Visit ___ Spiritual Assessment ___ Family Conference ___ Bereavement ___ Rapid Response ___ Code Blue ___ Other (describe below) Pastoral Care Referral From ___ Patient ___ Family _x__ Nurse ___ Physician ___ Regional Owner Operator Truck Driver ___ Aids Counselor ___ Other (describe below) Sacrament/Intervention _x__ Active listening ___ Anointing ___ Amish ___ Bereavement ___ Communion _x__ Sendy exploration ___ ___ Life review _x__ Prayer ___ Reconciliation ___ Sacrament of Sick _x__ Supportive presence ___ Wedding ___ Other (describe below) Pastoral Comments report of RN is that patient will be hospice after latest diagnosis; report of RN is that family is tearful and would benefit from spiritual support; entered room to discover family had stepped out; talked with patient who appeared weak; pt responded to questions but it may appear that she is not comprehending her situation; pt acknowledged that she has been sick a long time; pt admitted to some anxiety but when asked said that it was about her pets; pt said that she has family and friends for support; pt said she is a synagogue member but could not remember what synagogue; pt welcomed a prayer; first beater was waiting outside of room when I finished my visit;
== END 2018-06-04 16:45 | disposition hospice, inpatient (51) | DRG 441 ==
LOC: ED 17:32 → MS3 17:39
PROVIDERS: Admitting Provider Family Medicine; Emergency Provider Emergency Medicine; Family Provider Family Medicine; PCP Family Medicine; Visit Provider Student in an Organized Health Care Education/Training Program
DX: K72.90 Hepatic failure, unspecified without coma (principal); E43 Unspecified severe protein-calorie malnutrition; C78.7 Secondary malignant neoplasm of liver and intrahepatic bile duct; N17.9 Acute kidney failure, unspecified; R18.0 Malignant ascites; C79.51 Secondary malignant neoplasm of bone; Z68.1 Body mass index [BMI] 19.9 or less, adult; C50.919 Malignant neoplasm of unspecified site of unspecified female breast; E87.6 Hypokalemia; I10 Essential (primary) hypertension; Z85.850 Personal history of malignant neoplasm of thyroid; E89.0 Postprocedural hypothyroidism; K21.9 Gastro-esophageal reflux disease without esophagitis; Z51.5 Encounter for palliative care
CPT/HCPCS: 36591; 71046; 76705; 76770; 80048; 80053; 80076; 81001; 82140; 82570; 83735; 84100; 84300; 84484; 85025; 85610; 85730; 93005; 97163; 97166; 99284; J7030; A4216; J2405